=== PATIENT | male | born 1955 | race Caucasian/White ===

== ENCOUNTER 2017-02-17 07:39 | Emergency (ER) | payer MEDICAID ==
[2017-02-17] MEDS ORDERED: Sodium Chloride 0.9% 1,000 ML IV SCH ×2 (08:00→08:05)
[2017-02-17] MEDS ORDERED: Labetalol 100 MG/20 ML MDV IVPUSH ONE ×4 (08:30→17:09)
--- NOTE | 2017-02-17 09:47 | ER ---
HISTORY OF PRESENT ILLNESS: A 61-year-old male who comes in with complaints of having a funny sensation in his head about 0715 hours this morning, when he was out in his garage. He described it is a twinge. There was no pain. The patient states that instantly he noticed severe weakness on his left arm and leg. The patient was able to walk outside of his garage, and he hollered to a neighbor to come and help him because he could not walk any distance. They brought him into the emergency room. The patient states he is not having any pain. The vision in his left eye is slightly more blurry than usual. He states he has had visual problems for a while following surgery to the left eye, but today it is worse. The patient tells me he can feel his left arm and leg, but it does feel quite numb, and he does not have any strength. The patient has no history of stroke. Past medical history includes atrial fibrillation. He is currently not taking any medications. He tells me he quit taking them about a year and a half ago because he was doing well. He had been on Coumadin previously for atrial fibrillation, as well as other medications. OBJECTIVE: GENERAL APPEARANCE: The patient is awake and alert. His speech is clear. VITAL SIGNS: Reveal an initial blood pressure of 190/130. NEUROLOGIC: Pupils are equal, roughly at 4 mm. They are both sluggish to react to light. EOMs are roughly intact. The patient is able to smile evenly. Cranial nerves II through XII are intact. The patient is able to very slowly lift his left arm. He can feel light touch. The skin is intact involving the left arm, arm drift, this presents within just a few seconds. The patient also has significant weakness of the left leg, but again can feel light touch in the skin is intact. Head CT was obtained showing a possible right occipital infarct. Further evaluation is needed per radiologist report. I did talk to the radiologist about this patient. At this point, arrangements were made for transfer. I spoke with Dr. Prajapati, neurologist from [facility] in [place]. We need to get the patient's blood pressure down to 180/110. Labetalol has been used twice to try to accomplish this. We are still waiting for a blood pressure of 180/110, after which we will give tPA. The patient is going to be transferred by a fixed- wing aircraft. We are currently waiting for them to arrive, and addendum will be dictated after the patient leaves our facility. DIAGNOSIS: Left-sided hemiparesis, possible cerebrovascular accident. CRS/MODL /[id number] ADDENDUM: While in the emergency room department, the patient was given labetalol repeatedly for a total of 160 mg. This did not bring his blood pressure down to goal. The best reading we had was 183/130. Therefore, we could not initiate tPA. I did contact Dr. Prajapati, neurologist at [facility] once again with this information. At this point, he recommends we start a Cardene drip at 5 and send the tPA medication with the [employer] crew, who is here loading the patient. As we speak, if he reaches goal, they can initiate the treatment. The patient left our facility at approximately 1000 hours. He is complaining of just a slight headache in the temporal area, left side, but he states it is very mild. His condition otherwise did not change control analyst the course of being in the emergency room today. Date/Time JESSY Schafer CRS/MODL /[id number] MTDArnav
--- NOTE | 2017-02-17 10:15 | CT ---
UNENHANCED BRAIN CT, 02/17/17 Multislice acquisition through the brain without IV contrast was performed. No priors. There is mild diffuse cerebral atrophy. There are periventricular lucencies bilaterally consistent with small vessel ischemic change. There is subtle decreased attenuation in the right occipital lobe suggesting the possibility of an acute or subacute infarct. Followup imaging is recommended No masses or mass effect. No intracranial hemorrhage. There is a metallic density within the scalp in the left occipital region producing beam hardening and streak artifact. There is mucosal thickening in the maxillary and ethmoid sinuses consistent with chronic sinusitis. There is a rounded low-density in the left maxillary sinus consistent with a retention cyst or polyp. IMPRESSION: Subtle low density within the right occipital region suggesting the possibility of an acute/subacute infarct. No mass effect. No intracranial hemorrhage. Other findings as discussed above. [id number] [facility]
[2017-02-17] MEDS ORDERED: Sodium Chloride 0.9% 10 ML Syringe FLUSH PRN (17:27)
[2017-02-17 17:34] VITALS: BP 198/142
== END 2017-02-17 10:00 ==
LOC: LB.ED 07:39
DX: G81.94 Hemiplegia, unspecified affecting left nondominant side (principal)
CPT/HCPCS: 36415; 70450; 80053; 85025; 85379; 85610; 93005; 96361; 96374; 96376; 99285; A0425; A0429; J7040; J7050

== ENCOUNTER 2017-04-12 17:07 | Emergency (ER) | payer MEDICAID ==
[2017-04-12] MEDS ORDERED: Cephalexin 500 MG Cap ONE (17:30)
[2017-04-12 18:50] VITALS: BP 135/79
--- NOTE | 2017-04-12 19:34 | EDM.PDOC ---
ED HPI GENERAL MEDICAL PROBLEM - General Chief Complaint: Skin Complaint Stated Complaint: abscess Time Seen by Provider: 04/12/17 18:50 Source of Information: Reports: Patient, RN History Limitations: Reports: No Limitations - History of Present Illness INITIAL COMMENTS - FREE TEXT/NARRATIVE: 61 yr male presents to ER with abscess to right posterior shoulder. States he sat up/leaned against the couch and noticed this pain to the shoulder. States he has had an abscess like this in the past and had it lanced. Pt states he vacated the care center earlier this week. He was receiving PT/OT rehab for a stroke. He hasn't had any of his medications since he left the care center. He is ambulating with a cane and has weakness and swelling to his left hand. Onset: Today Onset Date: 04/12/17 Location: Reports: Back - Related Data Allergies Allergy/AdvReac Type Severity Reaction Status Date / Time No Known Allergies Allergy Verified 04/12/17 18:42 Home Meds: Home Meds NK [No Known Home Meds] 10/30/14 [History] Past Medical History Cardiovascular History: Reports: Afib Gastrointestinal History: Reports: Other (See Below) Other Gastrointestinal History: right Inguinal hernia Other Genitourinary History: quite severe CHF Musculoskeletal History: Reports: Arthritis Other Musculoskeletal History: cramping from edema in legs Psychiatric History: Reports: Depression Dermatologic History: Reports: Other (See Below) Other Dermatologic History: dry skin - Past Surgical History HEENT Surgical History: Reports: Detached Retina, Other (See Below) Other HEENT Surgeries/Procedures: 2 tears in retina Cardiovascular Surgical History: Reports: Other (See Below) Other Cardiovascular Surgeries/Procedures: CHF Social & Family History - Family History Cardiac: Reports: Afib - Tobacco Use Smoking Status *Q: Light Tobacco Smoker Years of Tobacco use: 40 Packs/Tins Daily: 0.1 Used Tobacco, but Quit: No Month Tobacco Last Used: Oct Second Hand Smoke Exposure: Yes - Caffeine Use Caffeine Use: Reports: Coffee - Alcohol Use Days Per Week of Alcohol Use: 1 Number of Drinks Per Day: 0 Total Drinks Per Week: 0 - Recreational Drug Use Recreational Drug Use: No Recreational Drug Type: Reports: Marijuana/Hashish Recreational Drug Use Frequency: Rarely ED ROS GENERAL - Review of Systems Review Of Systems: See Below Constitutional: Reports: No Symptoms Respiratory: Reports: No Symptoms Cardiovascular: Reports: Other (hx stroke and HTN) GI/Abdominal: Reports: No Symptoms Musculoskeletal: Reports: Other (weakness to left hand.) Skin: Reports: Other (abscess to right posterior shoulder/upper back) Neurological: Reports: No Symptoms Psychiatric: Reports: Depression ED EXAM, SKIN/RASH Exam: See Below Exam Limited By: No Limitations General Appearance: Alert, No Apparent Distress Ears: Hearing Grossly Normal Throat/Mouth: No Airway Compromise Head: Atraumatic Neck: Normal Inspection, Supple, Non-Tender Respiratory/Chest: No Respiratory Distress, Lungs Clear Cardiovascular: Regular Rate, Rhythm, Other (swelling noted to left hand) Back Exam: Normal Inspection Extremities: Other (swelling and limited movement to left hand/arm) Neurological: Alert, Oriented Psychiatric: Normal Affect, Normal Mood Skin: Warm, Dry, Normal Color, Erythema, Other (abcess to right upper back/ posterior shoulder) Location, Skin: Back Characteristics: Vesicular Associated features: Warmth, Tenderness, Swelling Lymphatic: No Adenopathy Course - Vital Signs Last Recorded V/S: Last Vital Signs Temp 98.6 F 04/12/17 18:40 Pulse 63 04/12/17 18:40 Resp 20 04/12/17 18:40 BP 135/79 04/12/17 18:40 Pulse Ox 98 04/12/17 18:40 - Re-Assessments/Exams Free Text/Narrative Re-Assessment/Exam: 04/12/17 19:39 Abscess was cleansed with povidine and Lidocaine 1% used to numb area. Lanced abscess and drained area of thick, white, cheese-like exudate. Area cleansed again, antibiotic oint applied and large band-aid applied. Recommend use of heating pad to area, keep area clean and dry. Reinforce with 4X4 or large bandaid as needed. RTC in next 2-3 days for follow- up with PCP. Keflex 500 mg tid X 10 days given from ER, disp 20 tab. Pt discharged ambulatory to self-care. Recommend F/U with PCP and PT/OT as needed. Departure - Departure Time of Disposition: 19:40 Disposition: Home, Self-Care 01 Condition: Good Clinical Impression: Abscess - Discharge Information Instructions: Abscess, [id number], Cephalexin tablets or capsules Referrals: PCP,None [Primary Care Provider] - Forms: ED Department Discharge Additional Instructions: Begin taking provided Cephalexin tonight as directed: 1 tablet by mouth every 8 hours until all pills are gone. Keep affected area clean and dry. Apply antibiotic ointment to open area and cover with bandaid for next 2-3 days. Be sure to watch for any signs or symptoms of infection including increased redness , increased swelling, increased pain or tenderness to touch, foul drainage and/ or fever present. Should any of these symptoms occur, return to be seen. Follow up in clinic as needed. Call with any questions.
== END 2017-04-12 19:30 | disposition home or self-care (01) ==
LOC: LB.ED 17:07
DX: L02.413 Cutaneous abscess of right upper limb (principal); L02.212 Cutaneous abscess of back [any part, except buttock and flank]; I10 Essential (primary) hypertension; Z72.0 Tobacco use
CPT/HCPCS: 10060; 99282; A9270

== ENCOUNTER 2017-05-12 11:25 | Observation (INO) | payer MEDICAID ==
[2017-05-12] MEDS ORDERED: Losartan 50 MG Tab PO SCH (14:00)
[2017-05-12] MEDS ORDERED: Acetaminophen 325 MG Tab PO PRN (14:03)
[2017-05-12] MEDS: LOSARTAN 100MG TABLETS PO SCH (15:32)
[2017-05-12] MEDS: Citalopram 20 MG Tab PO SCH (15:33)
[2017-05-12] MEDS: Carvedilol 12.5 MG Tab PO SCH (15:33)
[2017-05-12] MEDS: amLODIPine 5 MG Tab PO SCH (15:36)
[2017-05-12] MEDS: Enoxaparin 40 MG/0.4 ML Syringe SUBCUT SCH (15:39)
[2017-05-12] MEDS: Warfarin 5 MG Tab PO SCH (18:00)
[2017-05-12] MEDS: atorvaSTATin 80 MG Tab PO SCH (20:00)
--- NOTE | 2017-05-12 20:18 | HP ---
HISTORY OF PRESENT ILLNESS: Mr. Jolly suffered from CVA on February 17, 2017, where he was initially worked up here in the emergency room. He was then transferred. He spent some time in [place] and then was transferred back to [place] where he was admitted to long-term care. The patient tells me that he became discouraged and was having problems with paying his bills at home. His insurance was not covering this so on April 09, 2017, he decided to leave long-term care and go back home. He went off all his medications at that time, and he has now realized that he needs more help than he thought, and he is back in the clinic today asking to be readmitted to long-term care. The patient tells me that nothing has really changed as far as his symptoms. His left arm is almost useless. His left leg is weak, but he is able to get around with a cane, but his left hip starting to give him more problems. He feels it is because how he is having to walk. 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 OBJECTIVE: GENERAL: The patient is awake and alert. He is able to speak very clearly and is able to give me accurate dates on his dates of recent events. VITAL SIGNS: Taken in the clinic today reveal he is afebrile. Pulse is 118, respirations 18, but blood pressure 160/106. Current weight 245 pounds, height 6 feet. HEENT: On physical exam of ears; TMs are normal. Nares are patent. Oral mucous membranes are moist. Tonsils not enlarged or injected. NECK: Supple. LUNGS: Clear. CARDIAC: Heart sounds distinct with irregular rate. No murmurs noted. ABDOMEN: Soft, nontender. Bowel sounds are present. SKIN: Warm and dry. EXTREMITIES: There is no lower extremity edema. ASSESSMENT AND PLAN: The patient will be admitted on observation for the weekend, and we will restart all of his medications in addition to starting him on Lovenox 40 mg subcu daily. We will get a followup PT/INR on Monday, which is two days away, and the plan is to transfer him to respite care on Monday. CRS/MODL
[2017-05-13] MEDS: Citalopram 20 MG Tab PO SCH (08:06)
[2017-05-13] MEDS: amLODIPine 5 MG Tab PO SCH (08:06)
[2017-05-13] MEDS: Carvedilol 12.5 MG Tab PO SCH (08:06)
[2017-05-13] MEDS: LOSARTAN 100MG TABLETS PO SCH (08:06)
[2017-05-13] MEDS: Enoxaparin 40 MG/0.4 ML Syringe SUBCUT SCH (08:06)
--- NOTE | 2017-05-13 12:28 | PN ---
DATE OF VISIT: 05/13/2017 SUBJECTIVE: The patient was admitted yesterday to observation. He has status post CVA. He was initially in our facility in long-term care. He left roughly a month ago because he was discouraged and was having trouble paying his bills at home. The patient realized he could not take care of himself and decided to come back in. He went off all of his medications which were restarted yesterday. The patient is currently on Lovenox, bridging him while we restart Coumadin. The Coumadin was started yesterday at 5 mg a day, we will recheck PT/INR tomorrow morning. The patient tells me that he feels fine. He has no questions or concerns. He just finished taking a bath recently and tells me that it went well with some assistance. He has been eating well and vital signs have been good. Blood pressure has still been slightly elevated I noticed, but his blood pressure medicines were just restarted yesterday. Vital signs taken this morning, blood pressure 156/109, pulse 81. OBJECTIVE: GENERAL: The patient is awake and alert. Quite talkative. No obvious distress. LUNGS: Clear to auscultation. CARDIAC: Heart sounds distinct without murmurs. SKIN: Warm and dry. No change in treatment is needed today. I will follow up the patient tomorrow morning after we get his updated lab work, namely the PT/INR. CRS/MODL /[id number]
[2017-05-13] MEDS ORDERED: traMADol 50 MG Tab ONE ×2 (16:24→23:05)
[2017-05-13] MEDS: Warfarin 5 MG Tab PO SCH (18:36)
[2017-05-13] MEDS: atorvaSTATin 80 MG Tab PO SCH (20:15)
[2017-05-13] MEDS: traMADol 50 MG Tab PO PRN (23:10)
[2017-05-14] MEDS: traMADol 50 MG Tab PO PRN ×3 (07:27→23:59)
[2017-05-14] MEDS: Enoxaparin 40 MG/0.4 ML Syringe SUBCUT SCH (07:29)
[2017-05-14] MEDS: Citalopram 20 MG Tab PO SCH (07:29)
[2017-05-14] MEDS: Carvedilol 12.5 MG Tab PO SCH ×2 (07:29→21:37)
[2017-05-14] MEDS: amLODIPine 5 MG Tab PO SCH (07:30)
[2017-05-14] MEDS: LOSARTAN 100MG TABLETS PO SCH (07:30)
--- NOTE | 2017-05-14 12:27 | PN ---
DATE OF VISIT: 05/14/2017 This patient has been complaining of left hip pain since being admitted to observation. He was given Ultram tablets yesterday, 2 doses 50 mg per dose. He states this helped a lot. Ibuprofen was given at home, but here he was just given Tylenol earlier and it did not seem to help. I also ordered an x-ray of the left hip today just in case there was some acute bony abnormality. The x-ray shows some arthritis. I do not see any acute fracture. The patient states the pain is mostly in the buttocks radiating around to the lateral side of the hip. He denies any falls or injuries recently at home. He also had an INR done today, which is 1.1, really no improvement from his baseline. TREATMENT PLAN: At this point, we will continue with Ultram on a p.r.n. basis and I will increase his Coumadin to 7.5 mg a day with a repeat INR 2 days. The patient has been given Lovenox 40 mg subcu daily as well. Dr. Whitten will be assuming care for this patient starting tomorrow. CHIN/ELISEO /[id number]
[2017-05-14] MEDS: Warfarin 7.5 MG Tab PO SCH (17:30)
--- NOTE | 2017-05-14 18:48 | CR ---
DATE OF SERVICE: 05/14/2017 CLINICAL DATA: Left hip pain. LEFT HIP: There are mild osteoarthritic changes of both hip joints. No acute fracture or dislocation. No lytic or blastic bone lesions. There is a metallic coil noted in the pelvis. [id number] [facility]
[2017-05-14] MEDS: atorvaSTATin 80 MG Tab PO SCH (19:55)
[2017-05-15] MEDS ORDERED: Carvedilol 12.5 MG Tab PO SCH (08:00)
[2017-05-15] MEDS ORDERED: Cyclobenzaprine 10 MG Tab ONE (08:11)
[2017-05-15] MEDS: traMADol 50 MG Tab PO PRN ×3 (08:12→15:52)
[2017-05-15] MEDS: Citalopram 20 MG Tab PO SCH (08:14)
[2017-05-15] MEDS: amLODIPine 5 MG Tab PO SCH (08:15)
[2017-05-15] MEDS: LOSARTAN 100MG TABLETS PO SCH (08:16)
[2017-05-15] MEDS: Enoxaparin 40 MG/0.4 ML Syringe SUBCUT SCH (08:17)
[2017-05-15] MEDS: Carvedilol 12.5 MG Tab PO SCH ×2 (08:31→20:09)
[2017-05-15] MEDS: Cyclobenzaprine 10 MG Tab PO PRN (11:43)
--- NOTE | 2017-05-15 11:51 | PCM.PN ---
- General Info Date of Service: 05/15/17 Subjective Update: This is a 61yo M here for continued left sided shoulder and hip pain. He states at this time he has not had any improvement. He denies any shortness of breath, no chest pain but feels a soreness of the left shoulder and left hip. It is worse with movement. - Review of Systems General: Reports: No Symptoms HEENT: Reports: No Symptoms Pulmonary: Reports: No Symptoms Cardiovascular: Reports: No Symptoms Gastrointestinal: Reports: No Symptoms Genitourinary: Reports: No Symptoms Musculoskeletal: Reports: Shoulder Pain, Other (hip pain left) Skin: Reports: No Symptoms Neurological: Reports: Pre-Existing Deficit, Difficulty Walking, Gait Disturbance Psychiatric: Reports: No Symptoms - Patient Data Vitals - Most Recent: Last Vital Signs Temp 36.4 C 05/15/17 07:50 Pulse 85 05/15/17 08:31 Resp 20 05/15/17 07:50 BP 174/109 H 05/15/17 08:31 Pulse Ox 97 05/15/17 07:50 Weight - Most Recent: 111.13 kg I&O - Last 24 Hours: Intake & Output 05/14/17 05/15/17 05/15/17 22:59 06:59 14:59 Intake Total 860 Output Total 300 Balance 560 Akash Results Last 24 Hours: Microbiology 05/12/17 15:48 MRSA Surveillance Culture - Final Nares, Unspecified NO MRSA ISOLATED Med Orders - Current: Current Medications Acetaminophen (Tylenol) 650 mg PO Q4H PRN PRN Reason: Pain (Mild 1-3)/fever Last Admin: 05/14/17 07:28 Dose: 650 mg Amlodipine Besylate (Norvasc) 5 mg PO DAILY [facility] Last Admin: 05/15/17 08:15 Dose: 5 mg Atorvastatin Calcium (Lipitor) 80 mg PO BEDTIME [facility] Last Admin: 05/14/17 19:55 Dose: 80 mg Carvedilol (Coreg) 12.5 mg PO BID [facility] Last Admin: 05/15/17 08:31 Dose: 12.5 mg Citalopram Hydrobromide (Celexa) 20 mg PO DAILY [facility] Last Admin: 05/15/17 08:14 Dose: 20 mg Cyclobenzaprine HCl (Flexeril) 10 mg PO TID PRN PRN Reason: Muscle Spasm Last Admin: 05/15/17 11:43 Dose: 10 mg Enoxaparin Sodium (Lovenox) 40 mg SUBCUT DAILY [facility] Stop: 05/15/17 23:59 Last Admin: 05/15/17 08:17 Dose: 40 mg Losartan 100mg (Tablets) 0.5 each PO DAILY [facility] Last Admin: 05/15/17 08:16 Dose: 0.5 each Tramadol HCl (Ultram) 50 mg PO Q4H PRN PRN Reason: Pain (severe 7-10) Last Admin: 05/15/17 11:42 Dose: 50 mg Warfarin Sodium (Coumadin) 7.5 mg PO DAILY@1800 [facility] Last Admin: 05/14/17 17:30 Dose: 7.5 mg Discontinued Medications Carvedilol (Coreg) 12.5 mg PO DAILY [facility] Last Admin: 05/14/17 07:29 Dose: 12.5 mg Carvedilol (Coreg) 12.5 mg PO BID [facility] Cyclobenzaprine HCl (Flexeril) Confirm Administered Dose 10 mg .ROUTE .STK-MED ONE Stop: 05/15/17 08:12 Last Admin: 05/15/17 08:32 Dose: 10 mg Tramadol HCl (Ultram) Confirm Administered Dose 50 mg .ROUTE .STK-MED ONE Stop: 05/13/17 16:25 Last Admin: 05/13/17 16:30 Dose: 50 mg Tramadol HCl (Ultram) 50 mg PO Q8H PRN PRN Reason: left hip pain Last Admin: 05/15/17 08:12 Dose: 50 mg Tramadol HCl (Ultram) Confirm Administered Dose 50 mg .ROUTE .STK-MED ONE Stop: 05/13/17 23:06 Last Admin: 05/14/17 13:26 Dose: Not Given Warfarin Sodium (Coumadin) 5 mg PO DAILY@1800 [facility] Stop: 05/14/17 12:00 Last Admin: 05/13/17 18:36 Dose: 5 mg - Exam General: Alert, Oriented, Cooperative HEENT: Pupils Equal, Pupils Reactive, EOMI Neck: Supple Lungs: Clear to Auscultation, Normal Respiratory Effort Cardiovascular: Regular Rate, Regular Rhythm Back Exam: Normal Inspection Extremities: Other (contractures of the left hand) Skin: Warm, Dry, Intact Neurological: No New Focal Deficit Psy/Mental Status: Alert, Normal Affect, Normal Mood - Problem List & Annotations (1) Hemiparesis of left dominant side SNOMED Code(s): 006063554 Code(s): G81.92 - HEMIPLEGIA, UNSPECIFIED AFFECTING LEFT DOMINANT SIDE Status: Chronic Priority: Medium Current Visit: Yes Onset Date: ~02/17/17 Qualifiers: Cerebrovascular disease type: cerebral infarction Annotation/Comment:: 02/17/17 - Left-sided hemiparesis, possible cerebrovascular accident (2) Hypertensive heart disease SNOMED Code(s): 34902529 Code(s): I11.9 - HYPERTENSIVE HEART DISEASE WITHOUT HEART FAILURE Status: Chronic Priority: High Current Visit: Yes Annotation/Comment:: Patient has been off his meds prior to arrival and had an elevated BP (3) Cerebrovascular accident (CVA) SNOMED Code(s): 379110684 Code(s): I63.9 - CEREBRAL INFARCTION, UNSPECIFIED Status: Chronic Current Visit: No Onset Date: ~02/17/17 Annotation/Comment:: 02/17/17 - Left- sided hemiparesis, possible cerebrovascular accident - Problem List Review Problem List Initiated/Reviewed/Updated: Yes - My Orders Last 24 Hours: My Active Orders 05/15/17 08:19 Cyclobenzaprine [Flexeril] 10 mg PO TID PRN 05/15/17 09:48 traMADol [Ultram] 50 mg PO Q4H PRN 05/15/17 11:17 OT Evaluation and Treatment [CONS] Routine PT Evaluation and Treatment [CONS] Routine - Plan Plan:: Patient given muscle relaxants and pain management medication with good results. His BP continues to be elevated and we will increase BP medication while improving pain management and recheck. BP has improved greatly with both increase in HTN meds and pain medication. We will consider placement planning for tomorrow.
[2017-05-15] MEDS ORDERED: amLODIPine 5 MG Tab PO SCH (12:05)
[2017-05-15] MEDS ORDERED: amLODIPine 5 MG Tab PO ONE (12:06)
[2017-05-15] MEDS: oxyCODONE 5 MG Tab PO SCH ×3 (15:52→20:08)
[2017-05-15] MEDS: Warfarin 7.5 MG Tab PO SCH (19:06)
[2017-05-15] MEDS: atorvaSTATin 80 MG Tab PO SCH (20:10)
[2017-05-16] MEDS: oxyCODONE 5 MG Tab PO SCH ×4 (01:04→12:20)
[2017-05-16] MEDS: Cyclobenzaprine 10 MG Tab PO PRN ×2 (02:28→08:55)
[2017-05-16] MEDS: traMADol 50 MG Tab PO PRN (02:28)
[2017-05-16] MEDS: Citalopram 20 MG Tab PO SCH (07:38)
[2017-05-16] MEDS: Carvedilol 12.5 MG Tab PO SCH (07:38)
[2017-05-16 07:41] VITALS: BP 158/106
[2017-05-16] MEDS ORDERED: Losartan 50 MG Tab ONE (07:44)
[2017-05-16] MEDS: LOSARTAN 100MG TABLETS PO SCH (07:45)
--- NOTE | 2017-05-16 11:44 | PCM.DCSUM1 ---
Discharge Summary - Discharge Data Discharge Date: 05/16/17 Discharge Disposition: DC/Tfer to Other 70 Condition: Good - Discharge Diagnosis/Problem(s) (1) Hemiparesis of left dominant side SNOMED Code(s): 055738525 ICD Code: G81.92 - HEMIPLEGIA, UNSPECIFIED AFFECTING LEFT DOMINANT SIDE Status: Chronic Priority: Medium Current Visit: Yes Onset Date: ~02/17/17 Problem Details: 02/17/17 - Left-sided hemiparesis, possible cerebrovascular accident Qualifiers: Cerebrovascular disease type: cerebral infarction (2) Hypertensive heart disease SNOMED Code(s): 09429595 ICD Code: I11.9 - HYPERTENSIVE HEART DISEASE WITHOUT HEART FAILURE Status: Chronic Priority: High Current Visit: Yes Problem Details: Patient has been off his meds prior to arrival and had an elevated BP (3) Cerebrovascular accident (CVA) SNOMED Code(s): 489809030 ICD Code: I63.9 - CEREBRAL INFARCTION, UNSPECIFIED Status: Chronic Current Visit: No Onset Date: ~02/17/17 Problem Details: 02/17/17 - Left- sided hemiparesis, possible cerebrovascular accident - Patient Summary/Data Consults: Consultations 05/15/17 11:17 OT Evaluation and Treatment [CONS] Routine Please Evaluate and Treat. OT Reason for Consult: ADL's This query below is only for informational purposes and is not editable. Admission Diagnosis/Problem: CVA, Cerebrovascular accident PT Evaluation and Treatment [CONS] Routine Please Evaluate and Treat. PT Reason for Consult: Ambulation This query below is only for informational purposes and is not editable. Admission Diagnosis/Problem: CVA, Cerebrovascular accident - Patient Instructions Diet: Usual Diet as Tolerated Activity: As Tolerated Driving: Do Not Drive - Discharge Plan Home Medications: Home Meds Acetaminophen [Tylenol] 650 mg PO Q4H PRN tablet 05/16/17 [Rx] Carvedilol [Coreg] 12.5 mg PO BID tablet 05/16/17 [Rx] Citalopram [Citalopram HBr] 20 mg PO DAILY tablet 05/16/17 [Rx] Cyclobenzaprine [Flexeril] 10 mg PO TID PRN tablet 05/16/17 [Rx] Non-Formulary Medication [NF Drug] 0.5 each PO DAILY each 05/16/17 [Rx] Warfarin [Coumadin] 7.5 mg PO DAILY@1800 tablet 05/16/17 [Rx] atorvaSTATin [Lipitor] 80 mg PO BEDTIME tablet 05/16/17 [Rx] oxyCODONE 10 mg PO Q4H tablet 05/16/17 [Rx] - Discharge Summary/Plan Comment Discharge Summary/Plan Comment: Patient will be discharged to Respite care until we are able to admit him to the Care center. Patient agrees with plan. - Patient Data Vitals - Most Recent: Last Vital Signs Temp 37.0 C 05/16/17 08:00 Pulse 74 05/16/17 08:00 Resp 18 05/16/17 08:00 BP 158/106 H 05/16/17 08:00 Pulse Ox 96 05/16/17 08:00 Weight - Most Recent: 111.13 kg I&O - Last 24 hours: Intake & Output 05/15/17 05/16/17 05/16/17 22:59 06:59 14:59 Intake Total 680 360 Balance 680 360 Lab Results - Last 24 hrs: Laboratory Results - last 24 hr 05/16/17 Range/Units 07:10 Whole Blood INR 1.2 (1.0-3.5) Med Orders - Current: Current Medications Acetaminophen (Tylenol) 650 mg PO Q4H PRN PRN Reason: Pain (Mild 1-3)/fever Last Admin: 05/14/17 07:28 Dose: 650 mg Amlodipine Besylate (Norvasc) 10 mg PO DAILY [facility] Last Admin: 05/16/17 07:39 Dose: 10 mg Atorvastatin Calcium (Lipitor) 80 mg PO BEDTIME [facility] Last Admin: 05/15/17 20:10 Dose: 80 mg Carvedilol (Coreg) 12.5 mg PO BID [facility] Last Admin: 05/16/17 07:38 Dose: 12.5 mg Citalopram Hydrobromide (Celexa) 20 mg PO DAILY [facility] Last Admin: 05/16/17 07:38 Dose: 20 mg Cyclobenzaprine HCl (Flexeril) 10 mg PO TID PRN PRN Reason: Muscle Spasm Last Admin: 05/16/17 08:55 Dose: 10 mg Losartan 100mg (Tablets) 0.5 each PO DAILY [facility] Last Admin: 05/16/17 07:45 Dose: 0.5 each Oxycodone HCl (Oxycodone) 10 mg PO Q4H [facility] Last Admin: 05/16/17 07:40 Dose: 10 mg Tramadol HCl (Ultram) 50 mg PO Q4H PRN PRN Reason: Pain (severe 7-10) Last Admin: 05/16/17 02:28 Dose: 50 mg Warfarin Sodium (Coumadin) 7.5 mg PO DAILY@1800 [facility] Last Admin: 05/15/17 19:06 Dose: 7.5 mg Discontinued Medications Amlodipine Besylate (Norvasc) 5 mg PO DAILY [facility] Last Admin: 05/15/17 08:15 Dose: 5 mg Amlodipine Besylate (Norvasc) 5 mg PO ONETIME ONE Stop: 05/15/17 12:07 Last Admin: 05/15/17 12:29 Dose: 5 mg Carvedilol (Coreg) 12.5 mg PO DAILY [facility] Last Admin: 05/14/17 07:29 Dose: 12.5 mg Carvedilol (Coreg) 12.5 mg PO BID [facility] Cyclobenzaprine HCl (Flexeril) Confirm Administered Dose 10 mg .ROUTE .STK-MED ONE Stop: 05/15/17 08:12 Last Admin: 05/15/17 08:32 Dose: 10 mg Enoxaparin Sodium (Lovenox) 40 mg SUBCUT DAILY [facility] Stop: 05/15/17 23:59 Last Admin: 05/15/17 08:17 Dose: 40 mg Losartan Potassium (Cozaar) Confirm Administered Dose 50 mg .ROUTE .STK-MED ONE Stop: 05/16/17 07:45 Last Admin: 05/16/17 08:17 Dose: Not Given Tramadol HCl (Ultram) Confirm Administered Dose 50 mg .ROUTE .STK-MED ONE Stop: 05/13/17 16:25 Last Admin: 05/13/17 16:30 Dose: 50 mg Tramadol HCl (Ultram) 50 mg PO Q8H PRN PRN Reason: left hip pain Last Admin: 05/15/17 08:12 Dose: 50 mg Tramadol HCl (Ultram) Confirm Administered Dose 50 mg .ROUTE .STK-MED ONE Stop: 05/13/17 23:06 Last Admin: 05/14/17 13:26 Dose: Not Given Warfarin Sodium (Coumadin) 5 mg PO DAILY@1800 [facility] Stop: 05/14/17 12:00 Last Admin: 05/13/17 18:36 Dose: 5 mg *Q Meaningful Use (DIS) - VTE *Q VTE Criteria *Q: - Stroke *Q Stroke Criteria *Q: - AMI *Q AMI Criteria *Q:
== END 2017-05-16 15:30 | disposition other institution (70) ==
LOC: LB.CLINIC 11:25 → LB.MS 12:50 → UNDOADMOB 12:50 → LB.MS 13:49
PROVIDERS: ADMIT Physician Assistant; ATTEND Physician Assistant
DX: G81.92 Hemiplegia, unspecified affecting left dominant side (principal); I11.9 Hypertensive heart disease without heart failure; I63.9 Cerebral infarction, unspecified; I10 Essential (primary) hypertension; I48.91 Unspecified atrial fibrillation; E78.5 Hyperlipidemia, unspecified; Z79.01 Long term (current) use of anticoagulants; Z79.899 Other long term (current) drug therapy
CPT/HCPCS: 36415; 73502-LT; 80053; 85025; 85610; 93005; 96372; 97110-GO; 97161-GP; 97165-GO; A9270-GY; G0378; J1650

== ENCOUNTER 2017-05-16 15:22 | Inpatient (IN) | payer SELFPAY ==
[2017-05-16] MEDS ORDERED: Acetaminophen 325 MG Tab PO PRN (16:10)
[2017-05-16] MEDS ORDERED: Cyclobenzaprine 10 MG Tab PO PRN (16:10)
--- NOTE | 2017-05-16 16:17 | PCM.HP ---
H&P History of Present Illness - General Date of Service: 05/16/17 Admit Problem/Dx: Admission Diagnosis/Problem Admission Diagnosis/Problem CVA, Cerebrovascular accident Source of Information: Patient History Limitations: Reports: No Limitations - History of Present Illness Initial Comments - Free Text/Narative: This is a 61yo M who was recently placed in observation for debility, pain management and ADL care. He is now admitted to respite care and pending Care center admission. Patient denies any current concerns or complaints. Onset of Symptoms: Reports: Gradual Duration of Symptoms: Reports: Week(s): Location: Reports: Generalized Quality: Reports: Same as Previous Episode Severity: Moderate Improves with: Reports: None Worsens with: Reports: Movement - Related Data Allergies/Adverse Reactions: Allergies Allergy/AdvReac Type Severity Reaction Status Date / Time No Known Allergies Allergy Verified 05/16/17 15:44 Home Medications: Home Meds Acetaminophen [Tylenol] 650 mg PO Q4H PRN tablet 05/16/17 [Rx] Carvedilol [Coreg] 12.5 mg PO BID tablet 05/16/17 [Rx] Citalopram [Citalopram HBr] 20 mg PO DAILY tablet 05/16/17 [Rx] Cyclobenzaprine [Flexeril] 10 mg PO TID PRN tablet 05/16/17 [Rx] Losartan [Cozaar] 50 mg PO DAILY 05/16/17 [History] Warfarin [Coumadin] 7.5 mg PO DAILY@1800 tablet 05/16/17 [Rx] amLODIPine [Norvasc] 10 mg PO DAILY 05/16/17 [History] atorvaSTATin [Lipitor] 80 mg PO BEDTIME tablet 05/16/17 [Rx] oxyCODONE 10 mg PO Q4H tablet 05/16/17 [Rx] traMADol [Ultram] 50 mg PO Q4H PRN 05/16/17 [History] Past Medical History HEENT History: Reports: Impaired Vision Cardiovascular History: Reports: Afib, Heart Failure Gastrointestinal History: Reports: Other (See Below) Other Gastrointestinal History: right Inguinal hernia Other Genitourinary History: quite severe CHF Musculoskeletal History: Reports: Arthritis Other Musculoskeletal History: cramping from edema in legs Neurological History: Reports: CVA Other Neuro History: left arm paralysis, leg very sore Psychiatric History: Reports: Depression Dermatologic History: Reports: Other (See Below) Other Dermatologic History: dry skin - Past Surgical History HEENT Surgical History: Reports: Detached Retina, Other (See Below) Other HEENT Surgeries/Procedures: 2 tears in retina, peripheral vision loss left eye Cardiovascular Surgical History: Reports: Other (See Below) Other Cardiovascular Surgeries/Procedures: CHF Social & Family History - Family History Family Medical History: Noncontributory Cardiac: Reports: Afib - Tobacco Use Smoking Status *Q: Current Every Day Smoker Years of Tobacco use: 12 Packs/Tins Daily: 0.5 Used Tobacco, but Quit: No Month Tobacco Last Used: Oct Second Hand Smoke Exposure: Yes - Caffeine Use Caffeine Use: Reports: Coffee - Alcohol Use Days Per Week of Alcohol Use: 3 Number of Drinks Per Day: 5 Total Drinks Per Week: 15 - Recreational Drug Use Recreational Drug Use: No Recreational Drug Type: Reports: Marijuana/Hashish Recreational Drug Use Frequency: Rarely H&P Review of Systems - Review of Systems: Review Of Systems: ROS reveals no pertinent complaints other than HPI. Exam - Exam Exam: See Below - Vital Signs Weight: 111.13 kg - Exam General: Alert, Oriented HEENT: PERRLA, Conjunctiva Clear Neck: Supple, Trachea Midline Lungs: Clear to Auscultation, Normal Respiratory Effort Cardiovascular: Regular Rate, Irregular Rhythm GI/Abdominal Exam: Normal Bowel Sounds Extremities: Other (left hip pain and left shoulder pain; contractures of left hand) Peripheral Pulses: 2+: Dorsalis Pedis (L), Dorsalis Pedis (R) Skin: Warm, Dry, Intact *Q Meaningful Use (ADM) - VTE *Q VTE Criteria *Q: - Stroke *Q Stroke Criteria *Q: - AMI *Q AMI Criteria *Q: - Problem List (1) Left shoulder pain SNOMED Code(s): 30033981 ICD Code: M25.512 - PAIN IN LEFT SHOULDER Status: Acute Current Visit: Yes (2) Left hip pain SNOMED Code(s): 48659993 ICD Code: M25.552 - PAIN IN LEFT HIP Status: Acute Current Visit: Yes (3) Cerebrovascular accident (CVA) SNOMED Code(s): 173031920 ICD Code: I63.9 - CEREBRAL INFARCTION, UNSPECIFIED Status: Chronic Current Visit: No Onset Date: ~02/17/17 Problem Details: 02/17/17 - Left- sided hemiparesis, possible cerebrovascular accident (4) Hemiparesis of left dominant side SNOMED Code(s): 932049330 ICD Code: G81.92 - HEMIPLEGIA, UNSPECIFIED AFFECTING LEFT DOMINANT SIDE Status: Chronic Priority: Medium Current Visit: No Onset Date: ~02/17/17 Problem Details: 02/17/17 - Left-sided hemiparesis, possible cerebrovascular accident (5) Hypertensive heart disease SNOMED Code(s): 33409676 ICD Code: I11.9 - HYPERTENSIVE HEART DISEASE WITHOUT HEART FAILURE Status: Chronic Priority: High Current Visit: No Problem Details: Patient has been off his meds prior to arrival and had an elevated BP (6) Atrial flutter SNOMED Code(s): 3950623 ICD Code: I48.92 - UNSPECIFIED ATRIAL FLUTTER Status: Acute Current Visit : No Problem List Initiated/Reviewed/Updated: Yes Orders Last 24hrs: Active Orders 24 hr Category Date Time Status Patient Status [ADT] Routine ADT 05/16/17 16:09 Ordered Vital Signs [RC] Q4H Care 05/16/17 16:09 Ordered Regular Diet [DIET] Diet 05/16/17 Dinner Ordered Acetaminophen [Tylenol] Med 05/16/17 16:10 Ordered 650 mg PO Q4H PRN Carvedilol [Coreg] Med 05/16/17 20:00 Ordered 12.5 mg PO BID Citalopram [Celexa] Med 05/17/17 08:00 Ordered 20 mg PO DAILY Cyclobenzaprine [Flexeril] Med 05/16/17 16:10 Ordered 10 mg PO TID PRN Losartan [Cozaar] Med 05/17/17 08:00 Ordered 50 mg PO DAILY Warfarin [Coumadin] Med 05/16/17 18:00 Ordered 7.5 mg PO DAILY@1800 amLODIPine [Norvasc] Med 05/17/17 08:00 Ordered 10 mg PO DAILY atorvaSTATin [Lipitor] Med 05/16/17 20:00 Ordered 80 mg PO BEDTIME oxyCODONE Med 05/16/17 16:15 Ordered 10 mg PO Q4H Medication Orders Acetaminophen (Tylenol) 650 mg PO Q4H PRN PRN Reason: Pain (Mild 1-3)/fever Amlodipine Besylate (Norvasc) 10 mg PO DAILY [facility] Atorvastatin Calcium (Lipitor) 80 mg PO BEDTIME [facility] Carvedilol (Coreg) 12.5 mg PO BID [facility] Citalopram Hydrobromide (Celexa) 20 mg PO DAILY [facility] Cyclobenzaprine HCl (Flexeril) 10 mg PO TID PRN PRN Reason: Muscle Spasm Losartan Potassium (Cozaar) 50 mg PO DAILY [facility] Oxycodone HCl (Oxycodone) 10 mg PO Q4H [facility] Warfarin Sodium (Coumadin) 7.5 mg PO DAILY@1800 [facility] Assessment/Plan Comment:: Patient placed in Respite care pending Care center admission for deconditioning , weakness, Hemiparesis, and Myofascial pain.
[2017-05-16] MEDS: oxyCODONE 5 MG Tab PO SCH ×2 (16:35→19:54)
[2017-05-16] MEDS ORDERED: Warfarin 7.5 MG Tab PO SCH (18:00)
[2017-05-16] MEDS: Carvedilol 12.5 MG Tab PO SCH (19:55)
[2017-05-16] MEDS ORDERED: atorvaSTATin 80 MG Tab PO SCH (20:00)
[2017-05-17] MEDS: oxyCODONE 5 MG Tab PO SCH ×3 (03:52→08:10)
[2017-05-17] MEDS ORDERED: Losartan 50 MG Tab PO SCH (08:00)
[2017-05-17] MEDS ORDERED: Citalopram 20 MG Tab PO SCH (08:00)
[2017-05-17] MEDS ORDERED: amLODIPine 10 MG Tab PO SCH (08:00)
[2017-05-17] MEDS: Carvedilol 12.5 MG Tab PO SCH (08:12)
[2017-05-17 08:14] VITALS: BP 147/104
--- NOTE | 2017-05-17 10:07 | PCM.DCSUM1 ---
Discharge Summary - Discharge Data Discharge Date: 05/17/17 Discharge Disposition: DC/Tfer to [facility] Condition: Good - Discharge Diagnosis/Problem(s) (1) Left shoulder pain SNOMED Code(s): 11277300 ICD Code: M25.512 - PAIN IN LEFT SHOULDER Status: Acute Current Visit: Yes (2) Left hip pain SNOMED Code(s): 37763065 ICD Code: M25.552 - PAIN IN LEFT HIP Status: Acute Current Visit: Yes (3) Cerebrovascular accident (CVA) SNOMED Code(s): 177186822 ICD Code: I63.9 - CEREBRAL INFARCTION, UNSPECIFIED Status: Chronic Current Visit: No Onset Date: ~02/17/17 Problem Details: 02/17/17 - Left- sided hemiparesis, possible cerebrovascular accident (4) Hemiparesis of left dominant side SNOMED Code(s): 715710776 ICD Code: G81.92 - HEMIPLEGIA, UNSPECIFIED AFFECTING LEFT DOMINANT SIDE Status: Chronic Priority: Medium Current Visit: No Onset Date: ~02/17/17 Problem Details: 02/17/17 - Left-sided hemiparesis, possible cerebrovascular accident (5) Hypertensive heart disease SNOMED Code(s): 91644332 ICD Code: I11.9 - HYPERTENSIVE HEART DISEASE WITHOUT HEART FAILURE Status: Chronic Priority: High Current Visit: No Problem Details: Patient has been off his meds prior to arrival and had an elevated BP (6) Atrial flutter SNOMED Code(s): 5768726 ICD Code: I48.92 - UNSPECIFIED ATRIAL FLUTTER Status: Acute Current Visit : No - Patient Instructions Driving: Do Not Drive Showering/Bathing: May Shower - Discharge Plan Home Medications: Home Meds Acetaminophen [Tylenol] 650 mg PO Q4H PRN tablet 05/16/17 [Rx] Carvedilol [Coreg] 12.5 mg PO BID tablet 05/16/17 [Rx] Citalopram [Citalopram HBr] 20 mg PO DAILY tablet 05/16/17 [Rx] Cyclobenzaprine [Flexeril] 10 mg PO TID PRN tablet 05/16/17 [Rx] Losartan [Cozaar] 50 mg PO DAILY 05/16/17 [History] Warfarin [Coumadin] 7.5 mg PO DAILY@1800 tablet 05/16/17 [Rx] amLODIPine [Norvasc] 10 mg PO DAILY 05/16/17 [History] atorvaSTATin [Lipitor] 80 mg PO BEDTIME tablet 05/16/17 [Rx] oxyCODONE 10 mg PO Q4H tablet 05/16/17 [Rx] - Discharge Summary/Plan Comment Discharge Summary/Plan Comment: Patient will be discharged to the Care center with all meds. F/u INR on Monday. Continue current meds. - General Info Functional Status: Reports: Tolerating Diet, Ambulating - Review of Systems General: Reports: Weakness HEENT: Reports: No Symptoms Pulmonary: Reports: No Symptoms Cardiovascular: Reports: No Symptoms Gastrointestinal: Reports: No Symptoms Genitourinary: Reports: No Symptoms Musculoskeletal: Reports: Shoulder Pain, Other (hip pain left) Neurological: Reports: Pre-Existing Deficit - Patient Data Vitals - Most Recent: Last Vital Signs Temp 36.9 C 05/17/17 08:00 Pulse 87 05/17/17 08:12 Resp 18 05/17/17 08:00 BP 147/104 H 05/17/17 08:13 Pulse Ox 97 05/17/17 08:00 Weight - Most Recent: 111.13 kg Med Orders - Current: Current Medications Acetaminophen (Tylenol) 650 mg PO Q4H PRN PRN Reason: Pain (Mild 1-3)/fever Amlodipine Besylate (Norvasc) 10 mg PO DAILY [facility] Last Admin: 05/17/17 08:13 Dose: 10 mg Atorvastatin Calcium (Lipitor) 80 mg PO BEDTIME [facility] Last Admin: 05/16/17 19:55 Dose: 80 mg Carvedilol (Coreg) 12.5 mg PO BID [facility] Last Admin: 05/17/17 08:12 Dose: 12.5 mg Citalopram Hydrobromide (Celexa) 20 mg PO DAILY [facility] Last Admin: 05/17/17 08:11 Dose: 20 mg Cyclobenzaprine HCl (Flexeril) 10 mg PO TID PRN PRN Reason: Muscle Spasm Last Admin: 05/17/17 03:56 Dose: 10 mg Losartan Potassium (Cozaar) 50 mg PO DAILY [facility] Last Admin: 05/17/17 08:12 Dose: 50 mg Oxycodone HCl (Oxycodone) 10 mg PO Q4H [facility] Last Admin: 05/17/17 08:10 Dose: 10 mg Warfarin Sodium (Coumadin) 7.5 mg PO DAILY@1800 [facility] Last Admin: 05/16/17 17:57 Dose: 7.5 mg - Exam General: Reports: Alert, Oriented HEENT: Reports: Pupils Equal, Pupils Reactive, EOMI Neck: Reports: Supple Lungs: Reports: Clear to Auscultation, Normal Respiratory Effort Cardiovascular: Reports: Regular Rate, Regular Rhythm GI/Abdominal Exam: Normal Bowel Sounds Extremities: Other (left hand contrancture) *Q Meaningful Use (DIS) - VTE *Q VTE Criteria *Q: - Stroke *Q Stroke Criteria *Q: - AMI *Q AMI Criteria *Q:
== END 2017-05-17 11:15 | DRG 951 ==
LOC: UNDOADMIN 15:22 → LB.MS 15:22
PROVIDERS: ADMIT Family Medicine; ATTEND Family Medicine
DX: Z75.5 Holiday relief care (principal); I69.952 Hemiplegia and hemiparesis following unspecified cerebrovascular disease affecting left dominant side; I48.92 Unspecified atrial flutter; F17.210 Nicotine dependence, cigarettes, uncomplicated; I11.9 Hypertensive heart disease without heart failure; M25.512 Pain in left shoulder; M25.552 Pain in left hip; H54.7 Unspecified visual loss; Z79.01 Long term (current) use of anticoagulants; R53.1 Weakness; M79.1 Myalgia
CPT/HCPCS: A9270-GY

== ENCOUNTER 2017-06-03 20:01 | Emergency (ER) | payer MEDICAID ==
--- NOTE | 2017-06-03 20:18 | EDM.PDOC ---
ED HPI GENERAL MEDICAL PROBLEM - General Time Seen by Provider: 06/03/17 20:05 Source of Information: Reports: Patient History Limitations: Reports: No Limitations - History of Present Illness INITIAL COMMENTS - FREE TEXT/NARRATIVE: Pt was transferred to emergency room as patient has been complaints of chest discomfort. Apparently pt claims he had his supper and he has been having chest pressure. No nausea or vomiting. no abdominal pain or bloating. no belching or burping. Pt is very upset about his ibuprofen. He has receive 3200mg of ibuprofen since yesterday for about 24 hrs.he has been on pain meds for his hip arthritis. No pain in the left arm. Onset: Today Onset Date: 06/03/17 Onset Time: 20:00 Location: Reports: Chest Quality: Reports: Pressure Severity: Mild Improves with: Reports: None Worsens with: Reports: None Associated Symptoms: Denies: Confusion, Chest Pain, Cough, Diaphoresis, Fever/ Chills, Headaches, Nausea/Vomiting, Rash, Seizure, Shortness of Breath, Syncope , Weakness - Related Data Allergies Allergy/AdvReac Type Severity Reaction Status Date / Time No Known Allergies Allergy Verified 05/16/17 15:44 Home Meds: Home Meds Acetaminophen [Tylenol] 650 mg PO Q4H PRN tablet 05/16/17 [Rx] Carvedilol [Coreg] 12.5 mg PO BID tablet 05/16/17 [Rx] Citalopram [Citalopram HBr] 20 mg PO DAILY tablet 05/16/17 [Rx] Cyclobenzaprine [Flexeril] 10 mg PO TID PRN tablet 05/16/17 [Rx] Losartan [Cozaar] 50 mg PO DAILY 05/16/17 [History] Warfarin [Coumadin] 7.5 mg PO DAILY@1800 tablet 05/16/17 [Rx] amLODIPine [Norvasc] 10 mg PO DAILY 05/16/17 [History] atorvaSTATin [Lipitor] 80 mg PO BEDTIME tablet 05/16/17 [Rx] oxyCODONE 10 mg PO Q4H tablet 05/16/17 [Rx] Past Medical History HEENT History: Reports: Impaired Vision Cardiovascular History: Reports: Afib, Heart Failure Gastrointestinal History: Reports: Other (See Below) Other Gastrointestinal History: right Inguinal hernia Other Genitourinary History: quite severe CHF Musculoskeletal History: Reports: Arthritis Other Musculoskeletal History: cramping from edema in legs Neurological History: Reports: CVA Other Neuro History: left arm paralysis, leg very sore Psychiatric History: Reports: Depression Dermatologic History: Reports: Other (See Below) Other Dermatologic History: dry skin - Past Surgical History HEENT Surgical History: Reports: Detached Retina, Other (See Below) Other HEENT Surgeries/Procedures: 2 tears in retina, peripheral vision loss left eye Cardiovascular Surgical History: Reports: Other (See Below) Other Cardiovascular Surgeries/Procedures: CHF Social & Family History - Family History Family Medical History: Noncontributory Cardiac: Reports: Afib - Tobacco Use Smoking Status *Q: Current Every Day Smoker Years of Tobacco use: 12 Packs/Tins Daily: 0.5 Used Tobacco, but Quit: No Month/Year Tobacco Last Used: Oct Second Hand Smoke Exposure: Yes - Caffeine Use Caffeine Use: Reports: Coffee - Alcohol Use Days Per Week of Alcohol Use: 3 Number of Drinks Per Day: 5 Total Drinks Per Week: 15 - Recreational Drug Use Recreational Drug Use: No Recreational Drug Type: Reports: Marijuana/Hashish Recreational Drug Use Frequency: Rarely ED ROS GENERAL - Review of Systems Review Of Systems: See Below Constitutional: Denies: Fever, Chills HEENT: Denies: Eye Pain, Glasses, Hearing Loss, Rhinitis, Sinus Problem, Throat Pain Respiratory: Denies: Shortness of Breath, Wheezing, Pleuritic Chest Pain, Cough , Sputum Cardiovascular: Reports: Chest Pain (vague chest pressure). Denies: Lightheadedness Endocrine: Denies: Fatigue GI/Abdominal: Denies: Abdominal Pain, Constipation, Diarrhea, Nausea, Vomiting : Denies: Dysuria, Flank Pain, Frequency Musculoskeletal: Denies: Joint Pain, Joint Swelling Skin: Denies: Bruising, Pruritis, Rash Neurological: Denies: Confusion, Dizziness, Headache, Numbness, Paresthesia, Syncope, Tingling, Tremors, Gait Disturbance Psychiatric: Reports: Agitation, Anxiety. Denies: Confusion ED EXAM, GENERAL - Physical Exam Exam: See Below Exam Limited By: No Limitations General Appearance: Alert, WD/WN, No Apparent Distress, Other (pt walks without any discomfort) Eye Exam: Bilateral Eye: EOMI, PERRL Ears: Normal External Exam, Normal Canal, Hearing Grossly Normal, Normal TMs Ear Exam: Bilateral Ear: Auricle Normal, Canal Normal, TM normal Nose: Normal Inspection, Normal Mucosa, No Blood Throat/Mouth: Normal Inspection, Normal Lips, Normal Teeth, Normal Gums, Normal Oropharynx, Normal Voice, No Airway Compromise Head: Atraumatic, Normocephalic Neck: Normal Inspection, Supple, Non-Tender, Full Range of Motion Respiratory/Chest: No Respiratory Distress, Lungs Clear, Normal Breath Sounds, No Accessory Muscle Use, Chest Non-Tender Cardiovascular: Normal Peripheral Pulses, Regular Rate, Rhythm, No Edema, No Gallop, No JVD, No Murmur, No Rub GI/Abdominal: Normal Bowel Sounds, Soft, Non-Tender, No Organomegaly, No Distention, No Abnormal Bruit, No Mass Extremities: Normal Inspection, Normal Range of Motion, Non-Tender, No Pedal Edema, Normal Capillary Refill, Other (Pt ahws normal gait. i do not see any antalgic gait today.) Neurological: Alert, Oriented EKG INTERPRETATION EKG Date: 06/03/17 Rhythm: A-Fib Rate (Beats/Min): 71 [place]: Normal P-Wave: Present QRS: Normal ST-T: Normal QT: Normal Course - Vital Signs Text/Narrative:: Pt's EKG show Afib rate controlled. pt's CBC, CMP are normal. Troponin is negative. Pt reassured that his workup is normal no acute cardiac injury. Pt is still upset about the ibuprofen dose. I did go to [facility] and check on the pain meds. he is receiving his oxycodone and is on motrin 400mg every 4-6 hrs prn for pain. i have changed his ibuprofen to 400mg and tylenol 500mg to alternate every [address] he gets only 3 doses of each over 24 hrs. pt still seems upset about the whole medication issue than his health concerns. - Orders/Labs/Meds Orders: Active Orders 24 hr Category Date Time Status EKG Documentation Completion [RC] ASDIRECTED Care 06/03/17 20:17 Active Chest 1V Frontal [CR] Stat Exams 06/03/17 20:17 Taken Labs: Laboratory Tests 06/03/17 06/03/17 Range/Units 20:15 20:16 WBC 5.4 D (4.0-11.0) K/uL Hct 47.0 (40.0-54.0) % Sodium 142 (136-145) mmol/L Potassium 3.8 (3.5-5.1) mmol/L Chloride 103 (98-107) mmol/L Carbon Dioxide 27.4 (21.0-32.0) mmol/L Anion Gap 15.4 H (5.0-15.0) mmol/L BUN 14 (8-26) mg/dL Creatinine 1.21 (0.70-1.30) mg/dL Est Cr Clr Drug Dosing TNP Estimated GFR (MDRD) > 60 (>60) MLS/MIN BUN/Creatinine Ratio 11.6 (6-25) Glucose 114 H (74-100) mg/dL Calcium 9.3 (8.5-10.1) mg/dL Total Bilirubin 0.7 D (0.0-1.0) mg/dL AST 25 (15-37) U/L ALT 42 (12-78) U/L Alkaline Phosphatase 65 (46-116) U/L Troponin I < 0.017 D (0.000-0.060) ng/mL Total Protein 6.9 (6.4-8.2) g/dL Albumin 3.8 (3.4-5.0) g/dL Globulin 3.1 (2.2-4.2) g/dL Albumin/Globulin Ratio 1.2 (0.8-2.0) Departure - Departure Time of Disposition: 09:30 Disposition: DC/Tfer to [facility] Condition: Fair Clinical Impression: Chest discomfort - Discharge Information - Problem List & Annotations (1) Chest discomfort SNOMED Code(s): 482523592 Code(s): R07.89 - OTHER CHEST PAIN Status: Acute - Problem List Review Problem List Initiated/Reviewed/Updated: Yes - My Orders Last 24 Hours: My Active Orders 06/03/17 20:17 EKG Documentation Completion [RC] ASDIRECTED Chest 1V Frontal [CR] Stat - Assessment/Plan Last 24 Hours: My Active Orders 06/03/17 20:17 EKG Documentation Completion [RC] ASDIRECTED Chest 1V Frontal [CR] Stat Assessment:: Chest discomfort Plan: Pt's EKG show Afib rate controlled. pt's CBC, CMP are normal. Troponin is negative. Pt reassured that his workup is normal no acute cardiac injury. Pt is still upset about the ibuprofen dose. I did go to [facility] and check on the pain meds. he is receiving his oxycodone and is on motrin 400mg every 4-6 hrs prn for pain. i have changed his ibuprofen to 400mg and tylenol 500mg to alternate every [address] he gets only 3 doses of each over 24 hrs. pt still seems upset about the whole medication issue than his health concerns.
[2017-06-03 23:49] VITALS: BP 123/76
--- NOTE | 2017-06-04 12:34 | CR ---
DATE OF SERVICE: 06/03/17 CLINICAL DATA: chest pressure AP CHEST: Comparison is made to a prior exam dated 11/15/10. The heart size remains at the upper limits of normal. It does have somewhat rounded configuration, suggesting the possibility of a pericardial effusion. The aorta is ectatic. The pulmonary vasculature is mildly prominent. The lungs appear clear. No pneumothorax. No pleural effusions. [id number] MTDD
== END 2017-06-03 21:30 ==
LOC: LB.ED 20:01
DX: R07.89 Other chest pain (principal); I50.9 Heart failure, unspecified; I48.91 Unspecified atrial fibrillation; F17.210 Nicotine dependence, cigarettes, uncomplicated; Z79.01 Long term (current) use of anticoagulants; Z79.899 Other long term (current) drug therapy
CPT/HCPCS: 36415; 71045; 80053; 84484; 85014; 85048; 93005; 99285-25

== ENCOUNTER → 2017-07-04 | Emergency (ER) | payer MEDICAID ==
[~2017-07-04] MED LIST: Furosemide 40 MG/4 ML VIAL IVPUSH ONE; Furosemide 80 MG Tab ONE
--- NOTE | 2017-07-05 10:14 | ER ---
DATE OF SERVICE: 07/04/2017 HPI: A 61-year-old male who comes over from the [facility] with complaints of left leg swelling and pain. The patient states it has been ongoing for the last few days, but over the last 24 hours, it has gotten worse. It hurts from the calf muscle all the way up to the hip area. The patient states he has had this several times before and usually they gave him Lasix and it takes some of the fluid away and he feels better. The patient has not been running a fever. He does not feel sick. 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 CURRENT MEDICATIONS: Include oxycodone p.r.n., Lipitor, Norvasc, Coumadin, Cozaar, Flexeril, citalopram, Coreg, and Tylenol. OBJECTIVE: GENERAL APPEARANCE: The patient is awake and alert. He is in no respiratory distress. VITAL SIGNS: Reviewed as listed. Examining the patient's left leg reveals significant swelling of the entire ankle and calf muscle area. Mild swelling of the midfoot area. There is some pitting present. The skin is otherwise intact. He has tenderness with palpation of the calf muscle as well as behind the knee and the thigh. INITIAL DIAGNOSIS: Lymphedema with history of the same. TREATMENT PLAN: An IV was attempted to be started, but without success. Therefore, we will forego lab work today. This patient will be given Lasix 80 mg p.o. here in the ER. He will be assisted back to the [facility]. He refuses a King catheter telling me he will use a urinal. The patient will continue on Lasix 40 mg b.i.d. with his first dose of 40 mg this evening after roughly 6 hours. We will give him enough for two days after which he does have an appointment on scheduled in the clinic with his primary care provider. Followup should be sooner of course if his condition should get worse. DIAGNOSIS: Lymphedema of the left leg. CRS/MODL /[id number]
== END ==
LOC: LB.ED 12:08
DX: I89.0 Lymphedema, not elsewhere classified (principal); I50.9 Heart failure, unspecified
CPT/HCPCS: 99283; A9270-GY

== ENCOUNTER 2017-07-22 17:31 | Observation (INO) | payer MEDICAID ==
--- NOTE | 2017-07-22 18:27 | EDM.PDOC ---
ED HPI GENERAL MEDICAL PROBLEM - General Chief Complaint: Behavioral/Psych Stated Complaint: pyschosis Time Seen by Provider: 07/22/17 17:35 Source of Information: Reports: Other (Care center staff) History Limitations: Reports: Combative/Threatening, Uncooperative - History of Present Illness INITIAL COMMENTS - FREE TEXT/NARRATIVE: According to care center staff, pt has been very agitated and aggressive towards the care center staff for the past 3 days. He has been having some hallucination and has been talking to himself too. today afternoon he did try to walk out of the care center, and the staff some how got him back into his room. pt walked out of the room and threatened to get a gun and fill all the residents and be done with it. When the nursing home aide went into to the room to talk to patient he took his cane and tried to point it on her face, and told her " I will take care of you later". When I went to [facility] to evaluated patient, he had thrown thing all around the room, yelling and screaming and trying to attack me. When we got him into the emergency room with Law enforcement officers he seems a little calm. Patient says they have been making drugs at care center and care center staff is giving it to patients. Also he is asking me if I am on his side or the care center side. He is using offensive language and says " you are lazy , first fix the problem at the care center". Pt has had aggressive spells and behaviour on and off, but he is out of control today. - Related Data Allergies Allergy/AdvReac Type Severity Reaction Status Date / Time No Known Allergies Allergy Verified 07/22/17 18:00 Home Meds: Home Meds Acetaminophen [Tylenol] 650 mg PO Q4H PRN tablet 05/16/17 [Rx] Carvedilol [Coreg] 12.5 mg PO BID tablet 05/16/17 [Rx] Citalopram [Citalopram HBr] 20 mg PO DAILY tablet 05/16/17 [Rx] Cyclobenzaprine [Flexeril] 10 mg PO TID PRN tablet 05/16/17 [Rx] Losartan [Cozaar] 50 mg PO DAILY 05/16/17 [History] amLODIPine [Norvasc] 10 mg PO DAILY 05/16/17 [History] atorvaSTATin [Lipitor] 80 mg PO BEDTIME tablet 05/16/17 [Rx] oxyCODONE 10 mg PO Q4H tablet 05/16/17 [Rx] Docusate Sodium [Colace] 100 mg PO BID 07/22/17 [History] Furosemide 40 mg PO BID 07/22/17 [History] LORazepam 1 mg PO TID 07/22/17 [History] Warfarin Sodium [Jantoven] 10 mg PO ASDIRECTED 07/22/17 [History] Warfarin [Coumadin] 7.5 mg PO ASDIRECTED 07/22/17 [History] Past Medical History HEENT History: Reports: Impaired Vision Cardiovascular History: Reports: Afib, Heart Failure Gastrointestinal History: Reports: Other (See Below) Other Gastrointestinal History: right Inguinal hernia Other Genitourinary History: quite severe CHF Musculoskeletal History: Reports: Arthritis Other Musculoskeletal History: cramping from edema in legs Neurological History: Reports: CVA Other Neuro History: left arm paralysis, leg very sore Psychiatric History: Reports: Depression Dermatologic History: Reports: Other (See Below) Other Dermatologic History: dry skin - Past Surgical History HEENT Surgical History: Reports: Detached Retina, Other (See Below) Other HEENT Surgeries/Procedures: 2 tears in retina, peripheral vision loss left eye Cardiovascular Surgical History: Reports: Other (See Below) Other Cardiovascular Surgeries/Procedures: CHF Social & Family History - Family History Family Medical History: Noncontributory Cardiac: Reports: Afib - Caffeine Use Caffeine Use: Reports: Coffee ED ROS GENERAL - Review of Systems Review Of Systems: Unable To Obtain (due to patient beahvioural issues) ED EXAM, GENERAL - Physical Exam Exam: See Below Exam Limited By: No Limitations General Appearance: Alert, WD/WN, No Apparent Distress Eye Exam: Bilateral Eye: EOMI, PERRL Ears: Normal External Exam, Normal Canal, Hearing Grossly Normal, Normal TMs Ear Exam: Bilateral Ear: Auricle Normal, Canal Normal, TM normal Nose: Normal Inspection, Normal Mucosa, No Blood Throat/Mouth: Normal Inspection, Normal Lips, Normal Teeth, Normal Gums, Normal Oropharynx, Normal Voice, No Airway Compromise Head: Atraumatic, Normocephalic Neck: Normal Inspection, Supple, Non-Tender, Full Range of Motion Respiratory/Chest: No Respiratory Distress, Lungs Clear, Normal Breath Sounds, No Accessory Muscle Use, Chest Non-Tender Cardiovascular: Normal Peripheral Pulses, Regular Rate, Rhythm, No Gallop, No JVD, No Murmur, No Rub, Other (pedal edema 3+ B/l pitting type) Peripheral Pulses: 2+: Carotid (L), Carotid (R), Radial (L), Radial (R) GI/Abdominal: Normal Bowel Sounds, Soft, Non-Tender, No Organomegaly, No Distention, No Abnormal Bruit, No Mass Extremities: Normal Inspection, Normal Range of Motion, Non-Tender, Normal Capillary Refill, No Pedal Edema Neurological: Alert, Oriented, CN II-XII Intact, Normal Cognition, Normal Reflexes, No Motor/Sensory Deficits, Other (pt has very minimal problem with gati from hsi left hemiparesis.) Psychiatric: Other (Pt is physically and verbally abusive to people around him. he has calmed down a little with law enforcement officers. he has paranoid and delusional taughts( Care center staff making drugs and giving to patients) and also has been talking to people not in his room- as per the care center staff.) Skin Exam: Warm, Dry, Intact, Normal Color, No Rash Course - Vital Signs Text/Narrative:: I did contact Dr. Poe , the psychiatrist from [facility]. His recommendation was to have patient evaluated in a inpatient psych facility. I have called [facility] but there is no bed available. Have called [facility], [facility], [facility], [facility], [place], [facility],[place].. Apparently some places don't have available bed, and some place cannot accept patient because they don't do geriatric psych, or some places cannot accept because of aggressive behaviour. Apparently I have spent 5( five) hrs just calling places from 5:30 pm to 10:15 PM. Pt is starting to get agitated in the emergency room. Pt did receive Ativan 2mg IM with Haldol 5mg and Benadryl 50mg. I did call [facility] in [place], [place]. Apparently the psych facility at [facility] does not have bed either.I did call [facility] emergency room to see if they could keep him there in the emergency room considering that this is a [facility] with minimal resources , 3 nurses for the entire hospital and hard to give one on one care and monitor patient. Apparently [facility] does not accept patient like that. There recommendation was to keep calling places until a bed is available. I have run out of places to call in the past 5 hrs. Apparently at this point the only option available is to admit patient here for observation and keep him on Haldol 5mg every 6 hrs for acute psychosis with Benadryl 50mg, until a bed open some where. Last Recorded V/S: Last Vital Signs Temp 97.7 F 07/22/17 18:45 Pulse 107 H 07/22/17 17:36 Resp 18 07/22/17 18:45 BP 103/63 07/22/17 18:45 Pulse Ox 96 07/22/17 18:45 - Orders/Labs/Meds Orders: Active Orders 24 hr Category Date Time Status DRUG SCREEN, URINE [URCHEM] Stat Lab 07/22/17 18:18 Ordered Labs: Laboratory Tests 07/22/17 07/22/17 07/22/17 Range/Units 18:18 18:25 18:25 WBC 7.1 D (4.0-11.0) K/uL RBC 4.75 (4.50-6.50) M/uL Hgb 14.5 (13.0-18.0) g/dL Hct 42.5 (40.0-54.0) % MCV 90 (76-96) fL MCH 30.5 (27.0-32.0) pg MCHC 34.1 (31.0-35.0) g/dL RDW 12.4 (11.0-16.0) % Plt Count 146 L (150-400) K/uL MPV 9.2 (6.0-10.0) fL Neut % (Auto) 68.5 (45.0-70.0) % Lymph % (Auto) 18.5 L (20.0-40.0) % [place] % (Auto) 9.2 (3.0-10.0) % Eos % (Auto) 3.1 (1.0-5.0) % Baso % (Auto) 0.7 H (0.0-0.5) % Neut # (Auto) 4.86 (2.00-7.50) K/uL Lymph # (Auto) 1.31 L (1.50-4.00) K/uL [place] # (Auto) 0.65 (0.20-0.80) K/uL Eos # (Auto) 0.22 (0.04-0.40) K/uL Baso # (Auto) 0.05 (0.02-0.10) K/uL Sodium 140 (136-145) mmol/L Potassium 3.7 (3.5-5.1) mmol/L Chloride 102 (98-107) mmol/L Carbon Dioxide 29.1 (21.0-32.0) mmol/L Anion Gap 12.6 (5.0-15.0) mmol/L BUN 19 (8-26) mg/dL Creatinine 1.37 H (0.70-1.30) mg/dL Est Cr Clr Drug Dosing TNP Estimated GFR (MDRD) 52 L (>60) MLS/MIN BUN/Creatinine Ratio 13.9 (6-25) Glucose 108 H (74-100) mg/dL Calcium 9.3 (8.5-10.1) mg/dL Total Bilirubin 1.2 H D (0.0-1.0) mg/dL AST 25 (15-37) U/L ALT 33 (12-78) U/L Alkaline Phosphatase 60 (46-116) U/L Total Protein 7.0 (6.4-8.2) g/dL Albumin 4.0 (3.4-5.0) g/dL Globulin 3.0 (2.2-4.2) g/dL Albumin/Globulin Ratio 1.3 (0.8-2.0) TSH, Ultra Sensitive (0.358-3.740) uIU/mL Urine Opiates Screen Negative (NEGATIVE) Ur Oxycodone Screen Positive H (NEGATIVE) Ur Barbiturates Screen Negative (NEGATIVE) Ur Amphetamine Screen Negative (NEGATIVE) U Methamphetamines Scrn Negative (NEGATIVE) U Benzodiazepines Scrn Positive H (NEGATIVE) U Cocaine Metab Screen Negative (NEGATIVE) U Marijuana (THC) Screen Negative (NEGATIVE) 07/22/17 Range/Units 18:25 WBC (4.0-11.0) K/uL RBC (4.50-6.50) M/uL Hgb (13.0-18.0) g/dL Hct (40.0-54.0) % MCV (76-96) fL MCH (27.0-32.0) pg MCHC (31.0-35.0) g/dL RDW (11.0-16.0) % Plt Count (150-400) K/uL MPV (6.0-10.0) fL Neut % (Auto) (45.0-70.0) % Lymph % (Auto) (20.0-40.0) % [place] % (Auto) (3.0-10.0) % Eos % (Auto) (1.0-5.0) % Baso % (Auto) (0.0-0.5) % Neut # (Auto) (2.00-7.50) K/uL Lymph # (Auto) (1.50-4.00) K/uL [place] # (Auto) (0.20-0.80) K/uL Eos # (Auto) (0.04-0.40) K/uL Baso # (Auto) (0.02-0.10) K/uL Sodium (136-145) mmol/L Potassium (3.5-5.1) mmol/L Chloride (98-107) mmol/L Carbon Dioxide (21.0-32.0) mmol/L Anion Gap (5.0-15.0) mmol/L BUN (8-26) mg/dL Creatinine (0.70-1.30) mg/dL Est Cr Clr Drug Dosing Estimated GFR (MDRD) (>60) MLS/MIN BUN/Creatinine Ratio (6-25) Glucose (74-100) mg/dL Calcium (8.5-10.1) mg/dL Total Bilirubin (0.0-1.0) mg/dL AST (15-37) U/L ALT (12-78) U/L Alkaline Phosphatase (46-116) U/L Total Protein (6.4-8.2) g/dL Albumin (3.4-5.0) g/dL Globulin (2.2-4.2) g/dL Albumin/Globulin Ratio (0.8-2.0) TSH, Ultra Sensitive 1.019 D (0.358-3.740) uIU/mL Urine Opiates Screen (NEGATIVE) Ur Oxycodone Screen (NEGATIVE) Ur Barbiturates Screen (NEGATIVE) Ur Amphetamine Screen (NEGATIVE) U Methamphetamines Scrn (NEGATIVE) U Benzodiazepines Scrn (NEGATIVE) U Cocaine Metab Screen (NEGATIVE) U Marijuana (THC) Screen (NEGATIVE) Meds: Medications Discontinued Medications Generic Name Dose Route Start Last Admin Trade Name Freq PRN Reason Stop Dose Admin Diphenhydramine HCl Confirm 07/22/17 19:26 Benadryl Administered 07/22/17 19:27 Dose 50 mg .ROUTE .STK-MED ONE Haloperidol Confirm 07/22/17 19:26 Haldol Administered 07/22/17 19:27 Dose 5 mg .ROUTE .STK-MED ONE Lorazepam Confirm 07/22/17 19:25 Ativan Administered 07/22/17 19:26 Dose 2 mg .ROUTE .STK-MED ONE Departure - Departure Time of Disposition: 22:15 Disposition: Home, Self-Care 01 Condition: Good Clinical Impression: Acute psychosis - Discharge Information Referrals: PCP,None [Primary Care Provider] - Forms: ED Department Discharge - Problem List & Annotations (1) Acute psychosis SNOMED Code(s): 82499244, 64110022 Code(s): F23 - BRIEF PSYCHOTIC DISORDER Status: Acute Current Visit: Yes - Problem List Review Problem List Initiated/Reviewed/Updated: Yes - My Orders Last 24 Hours: My Active Orders 07/22/17 18:18 DRUG SCREEN, URINE [URCHEM] Stat - Assessment/Plan Last 24 Hours: My Active Orders 07/22/17 18:18 DRUG SCREEN, URINE [URCHEM] Stat Assessment:: Acute psychotic behaviour Plan: I did contact Dr. Poe , the psychiatrist from [facility]. His recommendation was to have patient evaluated in a inpatient psych facility. I have called [facility] but there is no bed available. Have called [facility], [facility], [facility], [facility], [facility], [place], [facility].. Apparently some places don't have available bed, and some place cannot accept patient because they don't do geriatric psych, or some places cannot accept because of aggressive behaviour. Apparently I have spent 5( five) hrs calling places. Pt is starting to get agitated in the emergency room. Pt did receive Ativan 2mg IM with Haldol 5mg and Benadryl 50mg. I did call [facility] in [place], [place]. Apparently the psych facility at [facility] does not have bed either.I did call [facility] emergency room to see if they could keep him there in the emergency room considering that this [facility] a [facility] with [facility] resources , 3 nurses for the entire hospital and hard to give one on one care and monitor patient. Apparently does not accept patient like that. There recommendation was to keep calling places until a bed is available. I have run out of places to call in the past 5 hrs. Apparently at this point the only option available is to admit patient here for observation and keep him on Haldol 5mg every 4 hrs, until a bed open.
[2017-07-22] MEDS ORDERED: LORazepam 1 MG Tab ONE (19:25)
[2017-07-22] MEDS ORDERED: diphenhydrAMINE 50 MG Cap ONE (19:26)
[2017-07-22] MEDS ORDERED: Haloperidol 1 MG Tab ONE (19:26)
[2017-07-22] MEDS: diphenhydrAMINE 50 MG/ML SDV IM PRN (21:07)
[2017-07-22] MEDS ORDERED: LORazepam 2 MG/ML SDV IVPUSH PRN (21:07)
[2017-07-22] MEDS: LORazepam 2 MG/ML SDV IM PRN (21:07)
[2017-07-22] MEDS ORDERED: diphenhydrAMINE 50 MG/ML SDV IVPUSH PRN (21:11)
[2017-07-22] MEDS: Haloperidol Lactate 5 MG/ML SDV IM PRN (21:12)
[2017-07-22] MEDS ORDERED: Haloperidol Lactate 5 MG/ML SDV IM PRN (22:28)
[2017-07-22] MEDS ORDERED: Non-Formulary Medication 1 Each (Warfarin Sodium [Jantoven] 10 MG) PO SCH (23:30)
[2017-07-22] MEDS: Non-Formulary Medication 1 Each (Warfarin [Coumadin] 7.5 MG) PO SCH (23:49)
[2017-07-22] MEDS: Non-Formulary Medication 1 Each (Atorvastatin [Lipitor] 80 MG) PO SCH (23:50)
[2017-07-22] MEDS: CARVEDILOL 12.5 MG PO SCH (23:50)
[2017-07-23] MEDS: LORazepam 2 MG/ML SDV IM PRN (04:50)
[2017-07-23] MEDS: diphenhydrAMINE 50 MG/ML SDV IM PRN (04:51)
[2017-07-23] MEDS ORDERED: Non-Formulary Medication 1 Each (Furosemide [Furosemide] 40 MG) PO SCH (08:00)
[2017-07-23] MEDS: Non-Formulary Medication 1 Each (Amlodipine [Norvasc] 10 MG) PO SCH (08:30)
[2017-07-23] MEDS: LORAZEPAM 1 MG PO SCH ×3 (08:30→20:24)
[2017-07-23] MEDS: CARVEDILOL 12.5 MG PO SCH ×2 (08:30→20:24)
[2017-07-23] MEDS: Non-Formulary Medication 1 Each (Furosemide [Furosemide] 40 MG) PO SCH ×2 (08:30→14:01)
[2017-07-23] MEDS: Non-Formulary Medication 1 Each (Citalopram [Citalopram Hbr] 20 MG) PO SCH (08:32)
[2017-07-23] MEDS: Non-Formulary Medication 1 Each (Losartan [Cozaar] 50 MG) PO SCH (08:34)
[2017-07-23] MEDS: Non-Formulary Medication 1 Each (Docusate Sodium [Colace] 100 MG) PO SCH ×2 (08:34→20:24)
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
[2017-07-23] MEDS: Non-Formulary Medication 1 Each (Atorvastatin [Lipitor] 80 MG) PO SCH (20:24)
[2017-07-23] MEDS ORDERED: Docusate Sodium 100 MG Cap ONE (20:26)
[2017-07-23] MEDS: Non-Formulary Medication 1 Each (Warfarin [Coumadin] 7.5 MG) PO SCH (20:45)
[2017-07-24] MEDS: Non-Formulary Medication 1 Each (Losartan [Cozaar] 50 MG) PO SCH (08:56)
[2017-07-24] MEDS: Non-Formulary Medication 1 Each (Furosemide [Furosemide] 40 MG) PO SCH ×2 (08:56→13:35)
[2017-07-24] MEDS: Non-Formulary Medication 1 Each (Citalopram [Citalopram Hbr] 20 MG) PO SCH (08:56)
[2017-07-24] MEDS: CARVEDILOL 12.5 MG PO SCH ×2 (08:57→20:25)
[2017-07-24] MEDS: Non-Formulary Medication 1 Each (Amlodipine [Norvasc] 10 MG) PO SCH (08:57)
[2017-07-24] MEDS: Non-Formulary Medication 1 Each (Docusate Sodium [Colace] 100 MG) PO SCH ×2 (08:59→20:25)
[2017-07-24] MEDS: LORAZEPAM 1 MG PO SCH ×3 (09:00→20:25)
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
[2017-07-24] MEDS: Non-Formulary Medication 1 Each (Atorvastatin [Lipitor] 80 MG) PO SCH (20:25)
[2017-07-25] MEDS: CARVEDILOL 12.5 MG PO SCH ×2 (07:34→20:17)
[2017-07-25] MEDS: Non-Formulary Medication 1 Each (Amlodipine [Norvasc] 10 MG) PO SCH (07:34)
[2017-07-25] MEDS: Non-Formulary Medication 1 Each (Citalopram [Citalopram Hbr] 20 MG) PO SCH (07:34)
[2017-07-25] MEDS: Non-Formulary Medication 1 Each (Losartan [Cozaar] 50 MG) PO SCH (07:35)
[2017-07-25] MEDS: LORAZEPAM 1 MG PO SCH ×3 (07:35→20:17)
[2017-07-25] MEDS: Non-Formulary Medication 1 Each (Furosemide [Furosemide] 40 MG) PO SCH ×2 (07:35→13:30)
[2017-07-25] MEDS ORDERED: Docusate Sodium 100 MG Cap ONE ×2 (07:49→19:48)
[2017-07-25] MEDS: Non-Formulary Medication 1 Each (Docusate Sodium [Colace] 100 MG) PO SCH ×2 (07:51→20:17)
--- NOTE | 2017-07-25 08:44 | PCM.PN ---
- General Info Date of Service: 07/25/17 Subjective Update: I did visit patient. today. He seems agitated today. He was upset as He saw Sreekanth Villela walk across his room. He starts asking me why He cannot go home today. He claims he does not want to go anywhere. He does not like the care center, or me anymore. HE says" you have kept me hostage here against my wishes ". Starts to get louder and louder with his voice. Blaming me for everything going on. Has had breakfast and has taken his morning meds. He does not want to take any other meds other than his routine medications. Functional Status: Reports: Tolerating Diet, Ambulating, Urinating - Review of Systems General: Reports: Other (cannotobtain. Pt is upset and agitated) Psychiatric: Reports: Agitation - Patient Data Vitals - Most Recent: Last Vital Signs Temp 98.5 F 07/24/17 20:00 Pulse 84 07/25/17 08:00 Resp 19 07/25/17 08:00 BP 124/90 07/25/17 08:00 Pulse Ox 98 07/25/17 08:00 Weight - Most Recent: 116.63 kg Med Orders - Current: Current Medications Cyclobenzaprine HCl (Flexeril) 10 mg PO TID PRN PRN Reason: Muscle Spasm Diphenhydramine HCl (Benadryl) 50 mg IM Q8H PRN PRN Reason: Agitation Last Admin: 07/23/17 04:51 Dose: 50 mg Haloperidol Lactate (Haldol) 5 mg IM Q8H PRN PRN Reason: Agitation Last Admin: 07/22/17 21:12 Dose: 5 mg Lorazepam (Ativan) 2 mg IM Q6H PRN PRN Reason: Agitation Last Admin: 07/23/17 04:50 Dose: 2 mg Non-Formulary Medication (Amlodipine [Norvasc]) 10 mg PO DAILY [facility] Last Admin: 07/25/17 07:34 Dose: 10 mg Non-Formulary Medication (Atorvastatin [Lipitor]) 80 mg PO BEDTIME [facility] Last Admin: 07/24/17 20:25 Dose: 80 mg Non-Formulary Medication (Carvedilol [Coreg]) 12.5 mg PO BID [facility] Last Admin: 07/25/17 07:34 Dose: 12.5 mg Non-Formulary Medication (Citalopram [Citalopram Hbr]) 20 mg PO DAILY [facility] Last Admin: 07/25/17 07:34 Dose: 20 mg Non-Formulary Medication (Docusate Sodium [Colace]) 100 mg PO BID [facility] Last Admin: 07/25/17 07:51 Dose: 100 mg Non-Formulary Medication (Losartan [Cozaar]) 50 mg PO DAILY [facility] Last Admin: 07/25/17 07:35 Dose: 50 mg Non-Formulary Medication (Oxycodone [Oxycodone]) 10 mg PO Q4H [facility] Last Admin: 07/25/17 07:35 Dose: 10 mg Non-Formulary Medication (Lorazepam [Lorazepam]) 1 mg PO TID [facility] Last Admin: 07/25/17 07:35 Dose: 1 mg Non-Formulary Medication (Furosemide [Furosemide]) 40 mg PO BID@0800,1400 [facility] Last Admin: 07/25/17 07:35 Dose: 40 mg (Warfarin [Coumadin] 7.5 Mg)Own Med * 7.5 mg PO [id number]@1800 [facility] (Warfarin Sodium [ Jantoven] 10 Mg) Own Med 10 mg PO MoWeFr@1800 [facility] Last Admin: 07/24/17 19:26 Dose: 10 mg Discontinued Medications Diphenhydramine HCl (Benadryl) Confirm Administered Dose 50 mg .ROUTE .STK-MED ONE Stop: 07/22/17 19:27 Last Admin: 07/22/17 23:54 Dose: Not Given Diphenhydramine HCl (Benadryl) 50 mg IVPUSH Q4H PRN PRN Reason: Agitation Docusate Sodium (Colace) Confirm Administered Dose 100 mg .ROUTE .STK-MED ONE Stop: 07/23/17 20:27 Last Admin: 07/23/17 21:12 Dose: Not Given Docusate Sodium (Colace) Confirm Administered Dose 100 mg .ROUTE .STK-MED ONE Stop: 07/25/17 07:50 Last Admin: 07/25/17 07:54 Dose: Not Given Haloperidol (Haldol) Confirm Administered Dose 5 mg .ROUTE .STK-MED ONE Stop: 07/22/17 19:27 Last Admin: 07/22/17 23:54 Dose: Not Given Haloperidol Lactate (Haldol) 5 mg IM Q8H PRN PRN Reason: Agitation Last Admin: 07/23/17 04:50 Dose: 5 mg Lorazepam (Ativan) Confirm Administered Dose 2 mg .ROUTE .STK-MED ONE Stop: 07/22/17 19:26 Last Admin: 07/22/17 23:54 Dose: Not Given Lorazepam (Ativan) 2 mg IVPUSH Q6H PRN PRN Reason: Agitation Non-Formulary Medication (Furosemide [Furosemide]) 40 mg PO BID [facility] Non-Formulary Medication (Warfarin Sodium [Jantoven]) 10 mg PO ASDIRECTED [facility] Non-Formulary Medication (Warfarin [Coumadin]) 7.5 mg PO ASDIRECTED [facility] Last Admin: 07/23/17 20:45 Dose: 7.5 mg - Exam General: Alert, Oriented HEENT: Pupils Equal, Pupils Reactive, EOMI, Mucous Membr. Moist/[place] Neck: Supple Lungs: Clear to Auscultation, Normal Respiratory Effort Cardiovascular: Regular Rate, Regular Rhythm Skin: Warm, Dry, Intact Neurological: No New Focal Deficit Psy/Mental Status: Agitated - Problem List & Annotations (1) Acute psychosis SNOMED Code(s): 99142012, 42601625 Code(s): F23 - BRIEF PSYCHOTIC DISORDER Status: Acute Current Visit: Yes - Problem List Review Problem List Initiated/Reviewed/Updated: Yes - My Orders Last 24 Hours: My Active Orders 07/24/17 18:00 Warfarin Sodium [Jantoven] 10 mg PO MoWeFr@1800 07/25/17 18:00 Warfarin [Coumadin] 7.5 mg PO SuTuThSa@1800 - Assessment Assessment:: Acute psychosis - Plan Plan:: Pt has been sedated and sleeping today. he has eaten his breakfast and also went for a short walk with the nursing staff guidance. and took his morning meds. He has not needs any more haldol. He is arousable and alert, but gets back to sleeping. Will continue his present home meds. Will wait on antipsychotics use for now unless patient gets aggressive or agitated. Apparently patient for the past 3 days has shown on several episode, concerns of physical harm to himself and other care center resident, by being violent, trying to run away from the care center and threatening to kill himself. Also he has made comments of going to get a gun and kill all the care center residents. Also has severe paranoia, making comments of care center staff giving drugs to all the residents, having projector in the wall and spying on the residents. Hallucinating, claims kids running out of the closets. He was involved in property damage in the form of throwing things around his room and pulling of his bed and pillow of the cot. Attacking me and the care center staff with his cane. His medical workup has been normal. Considering that he has paranoia, hallucinations and delusional taughts places him in acute psychosis. He definitely needs inpatient psychiatric evaluation. I have taken second opinion form Dr. Poe who is the psychiatrist who does telemedicine eval of psych patient, who strongly agrees with psych inpatient care. Presently will continue to monitor here. I have called [facility] and also few facilities around us today and still no available beds.With patient being acutely psychotic, I do not think he can make right decisions at this time. 07/25/15 Pt is much calmer than the past 2 days. Has been feeding and taking his meds. Has not shown any aggression towards staff or providers. But he still is very suspicious, dellusional and does have visual hallucinations. Presently he might not be harmful to others, but 2 day ago he was severe aggression, and tried to attack people with his can and myself too. And has threatened to use gun on the care center residents. I do feel this patient needs psychiatric clearance. Presently he is taking his home meds only. He has not needed any antipsychotics. But needs inpatient psych evaluation. 07/25/17 Pt was in much better mod yesterday. Today he starts blaming me for everything that is happening with him. He does not want to stay in the hosptial or does not want to go back to senior care( which is not option at this time). He just wants to go home. He also talks about some people at [facility] involved along with me secretly making me do things they want. He is trying to convince me that he did not attack anyone with his cane and it is all cooked up story by me, when he did that to me in the emergency room 2 days ago. He appears more paranoid today. He has taken his regular medications. Has been feeding well He needs psych placement, waiting on it.
[2017-07-25] MEDS ORDERED: WARFARIN 7.5 MG PO SCH (18:00)
[2017-07-25] MEDS: diphenhydrAMINE 50 MG/ML SDV IM PRN (18:30)
[2017-07-25] MEDS: Haloperidol Lactate 5 MG/ML SDV IM PRN (18:30)
[2017-07-25] MEDS: LORazepam 2 MG/ML SDV IM PRN (18:30)
[2017-07-25] MEDS: Cyclobenzaprine 10 MG Tab PO PRN (20:15)
[2017-07-25] MEDS: Non-Formulary Medication 1 Each (Atorvastatin [Lipitor] 80 MG) PO SCH (20:17)
[2017-07-26] MEDS: LORazepam 2 MG/ML SDV IM PRN ×2 (01:17→13:50)
[2017-07-26] MEDS: diphenhydrAMINE 50 MG/ML SDV IM PRN ×2 (01:19→13:50)
[2017-07-26] MEDS: Haloperidol Lactate 5 MG/ML SDV IM PRN ×2 (01:19→14:17)
[2017-07-26 10:09] VITALS: BP 138/95
[2017-07-26] MEDS: LORAZEPAM 1 MG PO SCH (11:04)
[2017-07-26] MEDS: Non-Formulary Medication 1 Each (Amlodipine [Norvasc] 10 MG) PO SCH (11:04)
[2017-07-26] MEDS: Non-Formulary Medication 1 Each (Losartan [Cozaar] 50 MG) PO SCH (11:04)
[2017-07-26] MEDS: Non-Formulary Medication 1 Each (Furosemide [Furosemide] 40 MG) PO SCH (11:04)
[2017-07-26] MEDS: Non-Formulary Medication 1 Each (Citalopram [Citalopram Hbr] 20 MG) PO SCH (11:04)
[2017-07-26] MEDS: CARVEDILOL 12.5 MG PO SCH (11:05)
[2017-07-26] MEDS: Non-Formulary Medication 1 Each (Docusate Sodium [Colace] 100 MG) PO SCH (11:05)
[2017-07-26] MEDS ORDERED: Docusate Sodium 100 MG Cap ONE (11:06)
[2017-07-26] MEDS: Cyclobenzaprine 10 MG Tab PO PRN (11:12)
--- NOTE | 2017-07-26 12:01 | PCM.PN ---
- General Info Date of Service: 07/26/17 Subjective Update: Pt is slightly drowsy form medication, but is arousable. He claims he is feeling fine , but c/o mild left hip pain and right elbow pain. Apparently patient tried to runaway form the health center and ended walking through the care center courtyard and fell and hurt his hip. he has been able to walk and not limping. also tierce filler he slid out of the bed and sustained a small abrasion over right elbow. has been taking his meds. Functional Status: Reports: Pain Controlled, Tolerating Diet, Ambulating (with his cane), Urinating - Review of Systems General: Denies: Fever, Weakness HEENT: Denies: Headaches, Sinus Congestion, Sore Throat Pulmonary: Denies: Cough, Sputum Cardiovascular: Denies: Chest Pain, Lightheadedness Gastrointestinal: Denies: Nausea, Vomiting Genitourinary: Denies: Dysuria, Hematuria Musculoskeletal: Reports: Joint Pain Skin: Reports: Bruising. Denies: Diaphoresis, Pruritis, Rash - Patient Data Vitals - Most Recent: Last Vital Signs Temp 98.5 F 07/24/17 20:00 Pulse 95 07/26/17 10:09 Resp 14 07/26/17 04:00 BP 138/95 H 07/26/17 10:09 Pulse Ox 100 07/26/17 10:09 Weight - Most Recent: 116.63 kg Med Orders - Current: Current Medications Cyclobenzaprine HCl (Flexeril) 10 mg PO TID PRN PRN Reason: Muscle Spasm Last Admin: 07/26/17 11:12 Dose: 10 mg Diphenhydramine HCl (Benadryl) 50 mg IM Q8H PRN PRN Reason: Agitation Last Admin: 07/26/17 01:19 Dose: 50 mg Haloperidol Lactate (Haldol) 5 mg IM Q8H PRN PRN Reason: Agitation Last Admin: 07/26/17 01:19 Dose: 5 mg Lorazepam (Ativan) 2 mg IM Q6H PRN PRN Reason: Agitation Last Admin: 07/26/17 01:17 Dose: 2 mg Non-Formulary Medication (Amlodipine [Norvasc]) 10 mg PO DAILY [facility] Last Admin: 07/26/17 11:04 Dose: 10 mg Non-Formulary Medication (Atorvastatin [Lipitor]) 80 mg PO BEDTIME [facility] Last Admin: 07/25/17 20:17 Dose: 80 mg Non-Formulary Medication (Carvedilol [Coreg]) 12.5 mg PO BID [facility] Last Admin: 07/26/17 11:05 Dose: 12.5 mg Non-Formulary Medication (Citalopram [Citalopram Hbr]) 20 mg PO DAILY [facility] Last Admin: 07/26/17 11:04 Dose: 20 mg Non-Formulary Medication (Docusate Sodium [Colace]) 100 mg PO BID [facility] Last Admin: 07/26/17 11:05 Dose: 100 mg Non-Formulary Medication (Losartan [Cozaar]) 50 mg PO DAILY [facility] Last Admin: 07/26/17 11:04 Dose: 50 mg Non-Formulary Medication (Oxycodone [Oxycodone]) 10 mg PO Q4H [facility] Last Admin: 07/26/17 11:03 Dose: 10 mg Non-Formulary Medication (Lorazepam [Lorazepam]) 1 mg PO TID [facility] Last Admin: 07/26/17 11:04 Dose: 1 mg Non-Formulary Medication (Furosemide [Furosemide]) 40 mg PO BID@0800,1400 [facility] Last Admin: 07/26/17 11:04 Dose: 40 mg (Warfarin [Coumadin] 7.5 Mg)Own Med * 7.5 mg PO SuTuThSa@1800 [facility] Last Admin: 07/25/17 18:04 Dose: 7.5 mg (Warfarin Sodium [ Jantoven] 10 Mg) Own Med 10 mg PO MoWeFr@1800 [facility] Last Admin: 07/24/17 19:26 Dose: 10 mg Discontinued Medications Diphenhydramine HCl (Benadryl) Confirm Administered Dose 50 mg .ROUTE .STK-MED ONE Stop: 07/22/17 19:27 Last Admin: 07/22/17 23:54 Dose: Not Given Diphenhydramine HCl (Benadryl) 50 mg IVPUSH Q4H PRN PRN Reason: Agitation Docusate Sodium (Colace) Confirm Administered Dose 100 mg .ROUTE .STK-MED ONE Stop: 07/23/17 20:27 Last Admin: 07/23/17 21:12 Dose: Not Given Docusate Sodium (Colace) Confirm Administered Dose 100 mg .ROUTE .STK-MED ONE Stop: 07/25/17 07:50 Last Admin: 07/25/17 07:54 Dose: Not Given Docusate Sodium (Colace) Confirm Administered Dose 100 mg .ROUTE .STK-MED ONE Stop: 07/25/17 19:49 Last Admin: 07/25/17 20:16 Dose: Not Given Docusate Sodium (Colace) Confirm Administered Dose 100 mg .ROUTE .STK-MED ONE Stop: 07/26/17 11:07 Haloperidol (Haldol) Confirm Administered Dose 5 mg .ROUTE .STK-MED ONE Stop: 07/22/17 19:27 Last Admin: 07/22/17 23:54 Dose: Not Given Haloperidol Lactate (Haldol) 5 mg IM Q8H PRN PRN Reason: Agitation Last Admin: 07/23/17 04:50 Dose: 5 mg Lorazepam (Ativan) Confirm Administered Dose 2 mg .ROUTE .STK-MED ONE Stop: 07/22/17 19:26 Last Admin: 07/22/17 23:54 Dose: Not Given Lorazepam (Ativan) 2 mg IVPUSH Q6H PRN PRN Reason: Agitation Non-Formulary Medication (Furosemide [Furosemide]) 40 mg PO BID [facility] Non-Formulary Medication (Warfarin Sodium [Jantoven]) 10 mg PO ASDIRECTED [facility] Non-Formulary Medication (Warfarin [Coumadin]) 7.5 mg PO ASDIRECTED [facility] Last Admin: 07/23/17 20:45 Dose: 7.5 mg - Exam General: Alert, Oriented HEENT: Pupils Equal, Pupils Reactive, EOMI, Mucous Membr. Moist/[place] Neck: Supple Lungs: Clear to Auscultation, Normal Respiratory Effort Cardiovascular: Regular Rate, Regular Rhythm GI/Abdominal Exam: Normal Bowel Sounds, Soft, Non-Tender, No Organomegaly, No Distention, No Abnormal Bruit, No Mass, Pelvis Stable Extremities: Normal Inspection, Normal Range of Motion, Normal Capillary Refill , Pedal Edema (chronic pitting, has Flako wraps on the legs.), Other (tender over the lateral aspect of the left thigh. Able to weight bear and walk with minimal discomfort) Skin: Warm, Intact, Other (Pt hs a very superficial epidermal abrasion over the dorsal aspect of the elbow. Hemostatic, does not involve dermis. healing.) - Problem List & Annotations (1) Acute psychosis SNOMED Code(s): 31572578, [id number] Code(s): F23 - BRIEF PSYCHOTIC DISORDER Status: Acute Current Visit: Yes - Problem List Review Problem List Initiated/Reviewed/Updated: Yes - My Orders Last 24 Hours: My Active Orders 07/25/17 18:00 Warfarin [Coumadin] 7.5 mg PO SuTuThSa@1800 07/26/17 11:53 Admission Status [Patient Status] [ADT] Routine - Assessment Assessment:: Acute psychosis - Plan Plan:: Pt has been sedated and sleeping today. he has eaten his breakfast and also went for a short walk with the nursing staff guidance. and took his morning meds. He has not needs any more haldol. He is arousable and alert, but gets back to sleeping. Will continue his present home meds. Will wait on antipsychotics use for now unless patient gets aggressive or agitated. Apparently patient for the past 3 days has shown on several episode, concerns of physical harm to himself and other care center resident, by being violent, trying to run away from the care center and threatening to kill himself. Also he has made comments of going to get a gun and kill all the care center residents. Also has severe paranoia, making comments of care center staff giving drugs to all the residents, having projector in the wall and spying on the residents. Hallucinating, claims kids running out of the closets. He was involved in property damage in the form of throwing things around his room and pulling of his bed and pillow of the cot. Attacking me and the care center staff with his cane. His medical workup has been normal. Considering that he has paranoia, hallucinations and delusional taughts places him in acute psychosis. He definitely needs inpatient psychiatric evaluation. I have taken second opinion form Dr. Poe who is the psychiatrist who does telemedicine eval of psych patient, who strongly agrees with psych inpatient care. Presently will continue to monitor here. I have called [facility] and also few facilities around us today and still no available beds.With patient being acutely psychotic, I do not think he can make right decisions at this time. 07/25/15 Pt is much calmer than the past 2 days. Has been feeding and taking his meds. Has not shown any aggression towards staff or providers. But he still is very suspicious, dellusional and does have visual hallucinations. Presently he might not be harmful to others, but 2 day ago he was severe aggression, and tried to attack people with his can and myself too. And has threatened to use gun on the care center residents. I do feel this patient needs psychiatric clearance. Presently he is taking his home meds only. He has not needed any antipsychotics. But needs inpatient psych evaluation. 07/25/17 Pt was in much better mod yesterday. Today he starts blaming me for everything that is happening with him. He does not want to stay in the hosptial or does not want to go back to jail( which is not option at this time). He just wants to go home. He also talks about some people at [facility] involved along with me secretly making me do things they want. He is trying to convince me that he did not attack anyone with his cane and it is all cooked up story by me, when he did that to me in the emergency room 2 days ago. He appears more paranoid today. He has taken his regular medications. Has been feeding well He needs psych placement, waiting on it. 07/26/17 Pt is drowsy secondary to ativan and benadryl that he received tierce filler today. Pt still has had aggressive behaviour and also tries to escape or get out of the health center. He still is paranoid of the nurses here at hospital giving him wrong medications. He has been agitated several time last night. Had a fall and sustained soft tissue injury to left hip and also has a small very superficial epidermal abrasion of left elbow, which should heal without complications. Still waiting on pscyhiatric evaluation.
--- NOTE | 2017-07-26 13:32 | PCM.DCSUM1 ---
Discharge Summary - Hospital Course Free Text/Narrative:: Pt was admitted with acute psychotic behaviour with paranoia, hallucinations and delusional thoughts. kindly see the H&P for details. apparently there was not psychiatric hospital bed available in the state on [place] or [place]. Pt was violent and aggressive on the day of admission, after consenting with Dr. Poe( Psychiatrist), pt did receive haldol 5mg+ Ativan 2mg+ benadryl 50mg Im to calm patient. Pt has been paranoid about every one and has had episodes of aggression on and off for the time period he has been here. yesterday he made an attempt to walk out and fell in the courtyard and has soft tissue injury to left hip. and also small superficial abrasion of right elbow. pt has blamed me responsible for his admission too. pt's paranoia and aggression has not got better, but has been less agitated and violent. He has received haldol 5mg, benadryl 50mg and ativan 2m before ambulance transfer. Pt will be transferred to [facility] today. further care per Dr. Engle. Brief History: Kindly see H&P for details - Discharge Data Discharge Date: 07/26/17 Discharge Disposition: DC/Tfer to Psych Hosp/Unit 65 Condition: Good - Discharge Diagnosis/Problem(s) (1) Acute psychosis SNOMED Code(s): 72094652, [id number] ICD Code: F23 - BRIEF PSYCHOTIC DISORDER Status: Acute Current Visit: Yes - Patient Instructions Diet: Heart Healthy Diet Fluid Restriction: 1500 mL Activity: As Tolerated Showering/Bathing: May Shower - Discharge Plan Home Medications: Home Meds Acetaminophen [Tylenol] 650 mg PO Q4H PRN tablet 05/16/17 [Rx] Carvedilol [Coreg] 12.5 mg PO BID tablet 05/16/17 [Rx] Citalopram [Citalopram HBr] 20 mg PO DAILY tablet 05/16/17 [Rx] Cyclobenzaprine [Flexeril] 10 mg PO TID PRN tablet 05/16/17 [Rx] Losartan [Cozaar] 50 mg PO DAILY 05/16/17 [History] amLODIPine [Norvasc] 10 mg PO DAILY 05/16/17 [History] atorvaSTATin [Lipitor] 80 mg PO BEDTIME tablet 05/16/17 [Rx] oxyCODONE 10 mg PO Q4H tablet 05/16/17 [Rx] Docusate Sodium [Colace] 100 mg PO BID 07/22/17 [History] Furosemide 40 mg PO BID 07/22/17 [History] LORazepam 1 mg PO TID 07/22/17 [History] Warfarin Sodium [Jantoven] 10 mg PO ASDIRECTED 07/22/17 [History] Warfarin [Coumadin] 7.5 mg PO ASDIRECTED 07/22/17 [History] Forms: ED Department Discharge Referrals: PCP,None [Primary Care Provider] - - Discharge Summary/Plan Comment DC Time >30 min.: Yes - General Info Functional Status: Reports: Pain Controlled, Tolerating Diet, Ambulating - Review of Systems General: Denies: Fever, Weakness HEENT: Denies: Sinus Congestion, Rhinitis Pulmonary: Denies: Cough, Sputum Cardiovascular: Reports: Edema. Denies: Chest Pain, Lightheadedness Gastrointestinal: Denies: Nausea, Vomiting Genitourinary: Denies: Dysuria, Frequency Musculoskeletal: Reports: Foot Pain. Denies: Joint Pain Skin: Denies: Jaundice, Mottled, Rash Neurological: Reports: Confusion. Denies: Headache, Numbness, Tingling - Patient Data Vitals - Most Recent: Last Vital Signs Temp 98.5 F 07/24/17 20:00 Pulse 95 07/26/17 10:09 Resp 14 07/26/17 04:00 BP 138/95 H 07/26/17 10:09 Pulse Ox 100 07/26/17 10:09 Weight - Most Recent: 116.63 kg Med Orders - Current: Current Medications Cyclobenzaprine HCl (Flexeril) 10 mg PO TID PRN PRN Reason: Muscle Spasm Last Admin: 07/26/17 11:12 Dose: 10 mg Diphenhydramine HCl (Benadryl) 50 mg IM Q8H PRN PRN Reason: Agitation Last Admin: 07/26/17 01:19 Dose: 50 mg Haloperidol Lactate (Haldol) 5 mg IM Q8H PRN PRN Reason: Agitation Last Admin: 07/26/17 01:19 Dose: 5 mg Lorazepam (Ativan) 2 mg IM Q6H PRN PRN Reason: Agitation Last Admin: 07/26/17 01:17 Dose: 2 mg Non-Formulary Medication (Amlodipine [Norvasc]) 10 mg PO DAILY [facility] Last Admin: 07/26/17 11:04 Dose: 10 mg Non-Formulary Medication (Atorvastatin [Lipitor]) 80 mg PO BEDTIME [facility] Last Admin: 07/25/17 20:17 Dose: 80 mg Non-Formulary Medication (Carvedilol [Coreg]) 12.5 mg PO BID [facility] Last Admin: 07/26/17 11:05 Dose: 12.5 mg Non-Formulary Medication (Citalopram [Citalopram Hbr]) 20 mg PO DAILY [facility] Last Admin: 07/26/17 11:04 Dose: 20 mg Non-Formulary Medication (Docusate Sodium [Colace]) 100 mg PO BID [facility] Last Admin: 07/26/17 11:05 Dose: 100 mg Non-Formulary Medication (Losartan [Cozaar]) 50 mg PO DAILY [facility] Last Admin: 07/26/17 11:04 Dose: 50 mg Non-Formulary Medication (Oxycodone [Oxycodone]) 10 mg PO Q4H [facility] Last Admin: 07/26/17 11:03 Dose: 10 mg Non-Formulary Medication (Lorazepam [Lorazepam]) 1 mg PO TID [facility] Last Admin: 07/26/17 11:04 Dose: 1 mg Non-Formulary Medication (Furosemide [Furosemide]) 40 mg PO BID@0800,1400 [facility] Last Admin: 07/26/17 11:04 Dose: 40 mg (Warfarin [Coumadin] 7.5 Mg)Own Med * 7.5 mg PO [email or web address] [facility] Last Admin: 07/25/17 18:04 Dose: 7.5 mg (Warfarin Sodium [ Jantoven] 10 Mg) Own Med 10 mg PO [email or web address] [facility] Last Admin: 07/24/17 19:26 Dose: 10 mg Discontinued Medications Diphenhydramine HCl (Benadryl) Confirm Administered Dose 50 mg .ROUTE .STK-MED ONE Stop: 07/22/17 19:27 Last Admin: 07/22/17 23:54 Dose: Not Given Diphenhydramine HCl (Benadryl) 50 mg IVPUSH Q4H PRN PRN Reason: Agitation Docusate Sodium (Colace) Confirm Administered Dose 100 mg .ROUTE .STK-MED ONE Stop: 07/23/17 20:27 Last Admin: 07/23/17 21:12 Dose: Not Given Docusate Sodium (Colace) Confirm Administered Dose 100 mg .ROUTE .[facility]-MED ONE Stop: 07/25/17 07:50 Last Admin: 07/25/17 07:54 Dose: Not Given Docusate Sodium (Colace) Confirm Administered Dose 100 mg .ROUTE .STK-MED ONE Stop: 07/25/17 19:49 Last Admin: 07/25/17 20:16 Dose: Not Given Docusate Sodium (Colace) Confirm Administered Dose 100 mg .ROUTE .STK-MED ONE Stop: 07/26/17 11:07 Last Admin: 07/26/17 12:00 Dose: Not Given Haloperidol (Haldol) Confirm Administered Dose 5 mg .ROUTE .ST-MED ONE Stop: 07/22/17 19:27 Last Admin: 07/22/17 23:54 Dose: Not Given Haloperidol Lactate (Haldol) 5 mg IM Q8H PRN PRN Reason: Agitation Last Admin: 07/23/17 04:50 Dose: 5 mg Lorazepam (Ativan) Confirm Administered Dose 2 mg .ROUTE .STK-MED ONE Stop: 07/22/17 19:26 Last Admin: 07/22/17 23:54 Dose: Not Given Lorazepam (Ativan) 2 mg IVPUSH Q6H PRN PRN Reason: Agitation Non-Formulary Medication (Furosemide [Furosemide]) 40 mg PO BID [facility] Non-Formulary Medication (Warfarin Sodium [Jantoven]) 10 mg PO ASDIRECTED [facility] Non-Formulary Medication (Warfarin [Coumadin]) 7.5 mg PO ASDIRECTED [facility] Last Admin: 07/23/17 20:45 Dose: 7.5 mg - Exam General: Reports: Alert, Oriented HEENT: Reports: Pupils Equal, Pupils Reactive, EOMI, Mucous Membr. Moist/[place] Neck: Reports: Supple Lungs: Reports: Clear to Auscultation, Normal Respiratory Effort Cardiovascular: Reports: Regular Rate, Regular Rhythm GI/Abdominal Exam: Normal Bowel Sounds, Soft, Non-Tender, No Organomegaly, No Distention, No Abnormal Bruit, No Mass, Pelvis Stable Extremities: Normal Inspection, Normal Range of Motion, Normal Capillary Refill , Pedal Edema (3+ pittting type B/L leg), Other (left hip: tender over the larteal hip . Normal ROm. normal gait.) Skin: Reports: Warm, Intact, Other (superficial abrasion of the right elbow) Neurological: Reports: No New Focal Deficit
== END 2017-07-26 13:50 ==
LOC: LB.ED 17:31 → LB.MS 22:00 → UNDOADMOB 22:00 → LB.MS 22:25 → OBSVTOIN 07-26 11:53 → INTOOBSV 07-26 11:53
PROVIDERS: ADMIT Family Medicine; ATTEND Family Medicine
DX: F23 Brief psychotic disorder (principal); R44.3 Hallucinations, unspecified; F22 Delusional disorders; I48.91 Unspecified atrial fibrillation; I50.9 Heart failure, unspecified; M19.90 Unspecified osteoarthritis, unspecified site; F32.9 Major depressive disorder, single episode, unspecified; Z79.899 Other long term (current) drug therapy; Z79.01 Long term (current) use of anticoagulants; Z86.73 Personal history of transient ischemic attack (TIA), and cerebral infarction without residual deficits
CPT/HCPCS: 36415; 80053; 80307; 84443; 85025; 96372; 96374; 96375; 99285-25; A0425; A0429; A9270-GY; G0378; J1200; J1630; J2060